=== PATIENT | female | born 1935 | race Caucasian/White ===

== ENCOUNTER 2023-11-23 13:38 | Emergency (ER) | payer MEDICARE, OTHER, SELFPAY ==
[2023-11-23 13:42] VITALS: BMI 20.7
[2023-11-23 13:43] VITALS: BP 155/79
[2023-11-23 13:47] VITALS: BP 155/79
[2023-11-23 14:00] VITALS: BP 125/99
--- NOTE | 2023-11-23 14:27 | ED.GENMED ---
History of Present Illness
General
Chief Complaint: Fall
Source: patient
Exam Limitations: none
Time Seen by Provider: 11/23/23 13:49
Nursing documentation reviewed up to this point in time: agreed with
History of Present Illness
History of Present Illness:
Patient is an 88-year-old female from [facility] presents to the ER for evaluation. She was in her apartment cleaning up from lunch when she reports she lost her balance and fell landing on her side. She reports she has balance issues.
She denies any lightheaded dizziness prior to fall. She denies hitting her head. She is not on blood thinners.She denies headache
She landed on her left hip but she does not believe her hip is sore. She does complain of left foot pain. She also complains of pain around her torso area/lower back and rib area. She denies any shortness of breath. Denies any pain with deep
breath.
she denies any headache, nausea/vomiting.
Past History
Past History
ED Past Medical History: Valvular disease
ED Past Surgical History: Gynecological
Social History
Living: alone
Review of Systems
Review of Systems
Allergies reviewed?: Yes
All Other Systems: ROS reviewed and negative except as documented in HPI and ROS
Constitutional: Reports no symptoms; Denies fever, fatigue or chills
Respiratory: Reports other (right rib pain); Denies trouble breathing
Cardiac: Reports no symptoms
ABD/GI: Reports no symptoms; Denies abdominal pain, nausea or vomiting
: Reports no symptoms
Musculoskeletal: Reports back pain
Skin: Reports no symptoms
Neurological: Reports other (Denies hitting head); Denies dizzy or headache
Phy Exam
General Physical Exam
General Presentation: no apparent distress
General age: appears stated age
General Skin: warm and dry
General Habitus: elderly
General Mental: alert
General Hydration: appears well hydrated
ENT Exam
ENT Exam: EOMI
Cardiovascular Exam
Cardiovascular Exam: regular rate/rhythm, no murmur and normal peripheral pulses
Pulmonary Exam
Pulmonary Exam: lungs clear, no respiratory distress and other (No ecchymosis or abrasions of chest mild tender right anterior rib, no crepitus)
Gastrointestinal Exam
Gastrointestinal Exam: non tender and soft
Neurological Exam
Neurological Exam: alert and oriented x3
Musculoskeletal Exam
Musculoskeletal Exam: other (Mildly sore to left foot however no obvious swelling or ecchymosis abrasions or ecchymosis to right medial foot; no obvious head injury no bony cervical thoracic tenderness mildly tender throughout the lumbar region)
Skin Exam
Skin Exam: normal color and warm/dry
Psychiatric Exam
Psychiatric Exam: normal mood/affect
Course
Orders/Labs/Results
Orders:
Orders
11/23/23 14:26
Foot, Left 3 View [CR Foot - Left Min 3 Views] Urgent
Comment:
Reason For Exam: trauma
Lumbar Spine Complete, 4 View [CR Lumbar Spine Comp Min 4 Vw*] Urgent
Comment:
Reason For Exam: trauma
Ribs, Right 3 View W/PA Chest [CR Ribs-right 3 Vw W/pa Chest*] Urgent
Comment:
Reason For Exam: trauma
11/23/23 14:28
Hip, Right 2-3 Views [CR Hip - RT w/wo Pel 2-3 Vw*] Urgent
Comment:
Reason For Exam: trauma
Include a pelvis x-ray?: Yes
11/23/23 15:52
Acetaminophen [Tylenol] 650 mg PO NOW STA
11/23/23 16:19
Chest/Abd/Pelvis w Contrast CT [CT Chest/abd/pel W Iv Cont] Urgent
Comment:
Reason For Exam: right rib/ruq pain/tenderness s/p trauma
Cardiac Monitoring- Treatment ONCE
0.9% Sodium Chloride 1000 ml [Nss] 1,000 ml IV BOLUS
11/23/23 16:52
Complete Blood Count/With Diff Urgent
11/23/23 17:55
Comprehensive Metabolic Panel Urgent
Abnormal Lab Results
11/23/23 11/23/23
16:52 17:55
WBC 11.1 H 10^3/uL
(4.8-10.8)
Abs Immat Gran (auto) 0.1 H 10^3/uL
(0-0.05)
Absolute Neuts (auto) 9.1 H 10^3/uL
(1.4-6.5)
Absolute Lymphs (auto) 0.9 L 10^3/uL
(1.2-3.4)
Absolute Monos (auto) 0.8 H 10^3/uL
(0.1-0.6)
Neutrophils % 82.4 H %
(42.2-75.2)
Lymphocytes % 8.4 L %
(20.5-51.1)
Sodium 130 L mmol/L
(135-145)
Chloride 94 L mmol/L
(98-107)
BUN 24 H mg/dl
(7-17)
Glucose 104 H mg/dl
(70-99)
AST 62 H U/L
(14-36)
ALT 63 H U/L
(0-35)
Alkaline Phosphatase 141 H U/L
(38-126)
Total Protein 6.2 L g/dl
(6.3-8.2)
11/23/23 16:52
11/23/23 17:55
Vital Signs
Initial and Last Documented VS:
Initial Vital Signs
BP
155/79
11/23/23 13:43
Last Documented Vital Signs
Temp Pulse Resp BP Pulse Ox
98.0 F 80 18 124/81 99
11/23/23 19:36 11/23/23 19:36 11/23/23 19:36 11/23/23 19:36 11/23/23 19:36
MDM/Problems Addressed
Differential Diagnosis Includes:
Not limited to fractures, contusions
MDM/Problems Addressed:
Patient is an 88-year-old female from [facility] who has previous balance issues describing a mechanical fall. She reports she did fall prior to arrival denies hitting her head. She landed on her head. She reports her foot is mildly sore
and she feels sore in the back and torso area. She denies any headache nausea vomiting. She has a normal neurologic Dave. She is in no acute distress no obvious head injury on exam x-rays were done of hip ribs lumbar spine and foot all which are
negative.
On reexam patient complains of some anterior rib pain and pain in the torso. CAT scan was done and does show a mild T11 superior endplate compression fracture however patient is nontender over this area. Family now bedside reports patient did have
a fall in the summer where she fell backward into her bathtub and has had pain since. This is likely the cause of patient's pain though with no tenderness today is likely from previous fall.
Regarding patient's pain she reports she has history of elevated LFTs they are mildly elevated here we will have her hold off of Tylenol take small doses of ibuprofen as needed . She would like to do lidocaine patches [id number] and I will go
through her insurance.
Will refer back to family doctor and orthopedics for continued monitoring discussed may need physical heart before of compression fracture.
She is ambulatory and steady gait and safe for discharge
Chronic conditions affecting care:
gait issues
*Radiology
Radiology exam reviewed: radiology read reviewed
*Pulse Oximetry
Patient hypoxic: no
*Critical Care Note
Total Time (30-74mins, 75-104mins- exclusive of procedures): Not Applicable
ED Attending Note
-
Portions of this chart may have been created with voice recognition software.� Occasional wrong word or��sound alike� substitutions may have occurred due to the inherent limitations of voice recognition software.
Discharge Plan
Departure
Patient Disposition: Home (Routine Discharge)
Date of Disposition: 11/23/23
Time of Disposition: 18:47
Patient with high blood pressure during this ER visit?: Yes
Condition: Fair
Covid-19: Not Applicable
Discharge Problem:
Contusion, Compression fracture
Instructions: Contusion (DC), Vertebral Compression Fracture (DC), BLOOD PRESSURE
Prescriptions:
No Action
multivitamin [Daily Multiple] 1 EACH tablet
1 ea PO DAILY
lorazepam 0.5 MG tablet
0.5 mg PO HS PRN (Reason: insomnia)
metoprolol succinate [Toprol XL] 25 MG tablet extended release 24 hr
25 mg PO DAILY
magnesium 200 MG tablet
200 mg PO DAILY
levofloxacin 500 MG tablet
500 mg PO DAILY Qty: 7 0RF
metronidazole 500 MG tablet
500 mg PO TID Qty: 20 0RF
Referrals:
Jaswant Parmar MD [Active] -
Shea Padilla MD [Family Provider] -
Activity Restrictions/Additional Instructions:
You may take ibuprofen 400 mg every 8 hours with food only for the next 2 to 3 days as needed
Ice the affected areas for the next 24 hours 20 minutes at a time several times a day. Follow-up with your family doctor in the next several for reevaluation as well as orthopedics for further evaluation of symptoms and evaluation for
compression fracture
Also as discussed you may use lidocaine 4% patches which are [id number]. apply to affected area.
In addition your sodium was mildly low you may increase sodium intake and follow-up with family doctor for repeat blood work in the next week
Return if any worsening of symptoms
Interventions
Interventions:
*Risk Screen - Suicide Last Done: 11/23/23 13:51
*General Assessment Last Done: 11/23/23 13:51
*Neglect/Abuse Screening Last Done: 11/23/23 13:51
ED- Fall Risk Assessment Last Done: 11/23/23 17:11
*ED COVID-19 Vaccine History Last Done: 11/23/23 13:51
*Nursing Disposition Last Done: 11/23/23 19:36
ED-Musculoskeletal Assessment Last Done: 11/23/23 17:13
ED- Neurological Assessment Last Done: 11/23/23 17:11
ED-Skin Assessment Last Done: 11/23/23 17:13
Discharge Date and Time
Discharge Date/Time: 11/23/23 19:45
Print Language: AZERI
[2023-11-23] MEDS: TYLENOL 650 MG PO (16:49)
[2023-11-23] MEDS: NSS 1000 IV (17:00)
[2023-11-23 17:09] LABS: % Basophils 0.3 % (0-2); % Eosinophils 0.8 % (0-6); % Immature Granulocytes 0.5 % (0-0.5); % Lymphocytes 8.4 % (20.5-51.1); % Monocytes 7.6 % (1.7-9.3); % Neutrophils 82.4 % (42.2-75.2); Absolute Eosinophils 0.1 10^3/uL (0-0.7); Absolute Immature Granulocytes 0.1 10^3/uL (0-0.05); Absolute Lymphocytes 0.9 10^3/uL (1.2-3.4); Absolute Monocytes 0.8 10^3/uL (0.1-0.6); Absolute Neutrophils 9.1 10^3/uL (1.4-6.5); Hematocrit 41.4 % (37.0-47.0); Hemoglobin 14.6 g/dL (12.0-16.0); Mean Corp Hgb Conc. 35.3 g/dL (33.0-37.0); Mean Corpuscular Volume 87.9 fL (81.0-99.0); Mean Platelet Volume 8.8 fL (7.4-10.4); Nucleated Red Blood Cells % 0 %; Platelet Count 268 10^3/uL (130-400); Red Blood Cell Count 4.71 10^6/uL (4.20-5.40); Red Cell Dist. Width 12.2 % (11.5-14.5); White Blood Cell Count 11.1 10^3/uL (4.8-10.8)
[2023-11-23 18:27] LABS: ALT (SGPT) 63 U/L (0-35); AST (SGOT) 62 U/L (14-36); Alkaline Phosphatase 141 U/L (38-126); Blood Urea Nitrogen 24 mg/dl (7-17); Calcium 9.4 mg/dl (8.4-10.2); Carbon Dioxide 24 mmol/L (22-30); Chloride 94 mmol/L (98-107); Estimated Creatinine Clearance 42 ml/min; Glucose 104 mg/dl (70-99); Potassium 4.5 mmol/L (3.5-5.1); Sodium 130 mmol/L (135-145); Total Bilirubin 0.5 mg/dl (0.2-1.3); Total Protein 6.2 g/dl (6.3-8.2); eGFR > 60.00
[2023-11-23 19:36] VITALS: BP 124/81
== END 2023-11-23 19:45 | disposition home or self-care (01) ==
LOC: EMR 13:38
PROVIDERS: Nurse Practitioner; EMERGENCY PHYSICIAN Emergency Medicine; FAMILY PHYSICIAN Internal Medicine
DX: S22.080A Wedge compression fracture of T11-T12 vertebra, initial encounter for closed fracture (principal); T14.8XXA Other injury of unspecified body region, initial encounter; R07.81 Pleurodynia; M54.50 Low back pain, unspecified; M79.672 Pain in left foot; R10.11 Right upper quadrant pain; W18.39XA Other fall on same level, initial encounter; Y93.89 Activity, other specified; Y92.89 Other specified places as the place of occurrence of the external cause; R03.0 Elevated blood-pressure reading, without diagnosis of hypertension; I38 Endocarditis, valve unspecified; Z91.81 History of falling; Z88.1 Allergy status to other antibiotic agents; Z88.5 Allergy status to narcotic agent; Z88.8 Allergy status to other drugs, medicaments and biological substances
CPT/HCPCS: 99285; 96360; 71101; 71260; 72110; 73502; 73630; 74177; 80053; 85025; Q9967

== ENCOUNTER 2023-12-08 05:29 | Inpatient (IN) | payer MEDICARE, OTHER, SELFPAY ==
[2023-12-08] VITALS (10 sets, daily range): BP systolic 147–179; BP diastolic 81–109; PULSE 106; O2SAT 94; BMI 19.4
--- NOTE | 2023-12-08 02:04 | ED.GENMED ---
History of Present Illness
<MARY Lennon - Last Filed: 12/08/23 02:36>
General
Chief Complaint: Abdominal Symptoms
Time Seen by Provider: 12/08/23 02:03
History of Present Illness
History of Present Illness:
Patient is an 88 year old female with a PMH of diverticulitis in 2018 presenting to the ED with complaints of abdominal pain. The pain started around 830 after she took her nighttime medication. She got bloated and got a burning generalized pain
rated a 6/10. She states the burning sensation went away and now it is just generalized pain. The pain does not radiate anywhere. Patient states she gets bloated usually after eating at night, but has never been symptomatic before. Her last bowel
movement was around noon and she states it was normal. She denies any chest pain palpitations sob nausea vomiting fever.
Patient has a PMH of a hysterectomy and diverticulitis. Patient denies any alcohol or tobacco use.
Past History
<MARY Lennon - Last Filed: 12/08/23 02:36>
Past History
ED Past Medical History: Valvular disease
ED Past Surgical History: Gynecological
Social History
Living: alone
Review of Systems
<MARY Lennon - Last Filed: 12/08/23 02:36>
Review of Systems
Constitutional: Reports no symptoms
Respiratory: Reports no symptoms
Cardiac: Reports no symptoms
ABD/GI: Reports abdominal pain (generalized )
Phy Exam
<MARY Lennon - Last Filed: 12/08/23 02:36>
General Physical Exam
General Presentation: well appearing
General age: appears stated age
General Habitus: elderly
General Mental: alert
Cardiovascular Exam
Cardiovascular Exam: regular rate/rhythm, no edema, no gallop, no JVD and no murmur
Pulmonary Exam
Pulmonary Exam: lungs clear, no respiratory distress, no rales, chest non tender, no crackles, no rhonchi, no stridor, no wheezing and no cough
Gastrointestinal Exam
Gastrointestinal Exam: normal bowel sounds, soft, no organomegaly, no pulsatile mass, no cva tenderness, abnormal bowel sounds, distended (moderately distended abdomen ) and tender
Palpation: left upper quadrant: Mild tenderness, left lower quadrant: Moderate tenderness (more tenderness in lower quadrants than upper quadrants ), right upper quadrant: Mild tenderness and right lower quadrant: Moderate tenderness (more
tenderness in lower quadrants than upper quadrants )
Course
<MARY Lennon - Last Filed: 12/08/23 02:36>
Orders/Labs/Results
Orders:
Orders
12/08/23 02:22
Urinalysis Reflex To Culture Urgent
12/08/23 02:35
0.9% Sodium Chloride 1000 ml [Nss] 1,000 ml IV BOLUS
Morphine Sulfate 2 mg IV NOW STA
Ondansetron Injectable [Zofran] 4 mg IV NOW STA
12/08/23 02:37
CT Abd/pelvis W Iv Cont Urgent
Comment:
Reason For Exam: gen abd pain, progressive x 2 weeks
12/08/23 02:55
Complete Blood Count/With Diff Urgent
Comprehensive Metabolic Panel Urgent
Lactic Acid Urgent
Lipase Urgent
12/08/23 03:16
Pantoprazole [Protonix IV] 40 mg IV NOW STA
Abnormal Lab Results
12/08/23
02:55
Absolute Neuts (auto) 7.8 H 10^3/uL
(1.4-6.5)
Absolute Monos (auto) 0.8 H 10^3/uL
(0.1-0.6)
Neutrophils % 77.7 H %
(42.2-75.2)
Lymphocytes % 11.4 L %
(20.5-51.1)
Sodium 132 L mmol/L
(135-145)
Chloride 93 L mmol/L
(98-107)
BUN 32 H mg/dl
(7-17)
Glucose 116 H mg/dl
(70-99)
Calcium 10.5 H mg/dl
(8.4-10.2)
AST 78 H U/L
(14-36)
ALT 102 H U/L
(0-35)
Alkaline Phosphatase 205 H U/L
(38-126)
12/08/23 02:55
12/08/23 02:55
Vital Signs
Initial and Last Documented VS:
Initial Vital Signs
Temp Pulse Resp BP Pulse Ox
97.8 F 88 20 179/92 98
12/08/23 02:01 12/08/23 02:01 12/08/23 02:01 12/08/23 02:01 12/08/23 02:01
Last Documented Vital Signs
Temp Pulse Resp BP Pulse Ox
97.8 F 88 20 179/92 98
12/08/23 02:01 12/08/23 02:01 12/08/23 02:01 12/08/23 02:01 12/08/23 02:19
<Concetta Gotti, DO - Last Filed: 12/08/23 04:36>
Orders/Labs/Results
Orders:
Orders
12/08/23 02:22
Urinalysis Reflex To Culture Urgent
12/08/23 02:35
0.9% Sodium Chloride 1000 ml [Nss] 1,000 ml IV BOLUS
Morphine Sulfate 2 mg IV NOW STA
Ondansetron Injectable [Zofran] 4 mg IV NOW STA
12/08/23 02:37
CT Abd/pelvis W Iv Cont Urgent
Comment:
Reason For Exam: gen abd pain, progressive x 2 weeks
12/08/23 02:55
Complete Blood Count/With Diff Urgent
Comprehensive Metabolic Panel Urgent
Lactic Acid Urgent
Lipase Urgent
12/08/23 03:16
Pantoprazole [Protonix IV] 40 mg IV NOW STA
Abnormal Lab Results
12/08/23
02:55
Absolute Neuts (auto) 7.8 H 10^3/uL
(1.4-6.5)
Absolute Monos (auto) 0.8 H 10^3/uL
(0.1-0.6)
Neutrophils % 77.7 H %
(42.2-75.2)
Lymphocytes % 11.4 L %
(20.5-51.1)
Sodium 132 L mmol/L
(135-145)
Chloride 93 L mmol/L
(98-107)
BUN 32 H mg/dl
(7-17)
Glucose 116 H mg/dl
(70-99)
Calcium 10.5 H mg/dl
(8.4-10.2)
AST 78 H U/L
(14-36)
ALT 102 H U/L
(0-35)
Alkaline Phosphatase 205 H U/L
(38-126)
12/08/23 02:55
12/08/23 02:55
Vital Signs
Initial and Last Documented VS:
Initial Vital Signs
Temp Pulse Resp BP Pulse Ox
97.8 F 88 20 179/92 98
12/08/23 02:01 12/08/23 02:01 12/08/23 02:01 12/08/23 02:01 12/08/23 02:01
Last Documented Vital Signs
Temp Pulse Resp BP Pulse Ox
97.8 F 88 20 179/92 98
12/08/23 02:01 12/08/23 02:01 12/08/23 02:01 12/08/23 02:01 12/08/23 02:19
<MARY Lennon - Last Filed: 12/08/23 02:36>
MDM/Problems Addressed
Differential Diagnosis Includes:
appendicitis, PUD, diverticulitis, colitis
MDM/Problems Addressed:
administer pain meds, order bloodwork
<MARY Lennon - Last Filed: 12/08/23 02:36>
*Critical Care Note
Total Time (30-74mins, 75-104mins- exclusive of procedures): Not Applicable
<Concetta Gotti DO - Last Filed: 12/08/23 04:36>
*Radiology
Radiology exam reviewed: radiology read reviewed
*Pulse Oximetry
Patient hypoxic: no
ED Attending Note
<MARY Lennon - Last Filed: 12/08/23 02:36>
-
Portions of this chart may have been created with voice recognition software.� Occasional wrong word or��sound alike� substitutions may have occurred due to the inherent limitations of voice recognition software.
<Concetta Gotti DO - Last Filed: 12/08/23 04:36>
ED Attending Note
Patient seen and examined by attending physician: Yes
I performed the substantive portion of visit, reviewed & personally made and approve the management plan that is documented in note by myself or RENATA.: Yes
ED Attending Note:
This is an 88-year-old woman who resides at [facility]. She has history of hypertension, GERD, irritable bowel syndrome, depression. She suffered a mechanical fall November 22 and was evaluated in this ED on that day
with complaints of right-sided abdominal pain, right rib pain, bilateral hip pain, left foot pain. X-rays were all unremarkable. CT chest abdomen pelvis showed likely an acute mild L1 superior endplate compression fracture as well as findings
suggestive of nonspecific enteritis/ileus. She was initially discharged back to her independent living apartment where she states she has had continued upper abdominal pain as well as some mild back and right hip pain and has been taking ibuprofen
200 mg 3 times daily as well as Tylenol 3 times daily. She complains of progressive generalized upper abdominal pain that is worse after meals, worse at bedtime described as a burning sensation. Due to ongoing discomfort/pain she has been
transitioned to intermediate facility on December 04 in anticipation to initiate physical therapy. She states ibuprofen was discontinued today, December 06 and change to Celebrex. She was also started on several other medications.
Tonight around 8:30 PM she states abdominal pain has worsened accompanied with abdominal bloating, progressive since then. She has had brief nausea but no vomiting. She passed a normal bowel movement around 12 noon yesterday. No history of
similar episodes of abdominal pain in the past.
She has prior history of diverticulitis 2018. Current pain feels quite different from that.
She has had no dysuria and urgency and or hematuria. No fever no chills, no chest pain nor cough nor shortness of breath.
Her only previous abdominal surgery is a hysterectomy.
GENERAL: 88-year-old woman appears her stated age, awake and alert, appears mildly uncomfortable related to pain. Easily communicative, alert and oriented x 3.
EYE: pupils equal and reactive. anicteric
NECK: Supple, nontender, no meningismus, no significant adenopathy.
ENT: oral mucosa is moist. No rhinorrhea.
CARDIAC: Regular rate and rhythm. no murmur.
LUNGS: Clear breath sounds bilaterally, no acute respiratory distress, no wheezes/rales/rhonchi
ABDOMEN: Rotund, soft, mildly distended, mild tenderness right lower quadrant with deep palpation only, no r/g, no cvat. Mildly hypoactive bowel sounds.
NEUROLOGICAL: Alert and oriented x3, no focal neuro deficits.
SKIN: Warm and dry, normal color, skin intact. No rash.
MUSCULOSKELETAL: No C/C/E. peripheral pulses are full and equal b/l. No palpable tenderness. Dark purple resolving ecchymotic patch left lateral hip.
PSYCH: Normal and appropriate interaction.
Concern for acute appendicitis, diverticulitis, peptic ulcer disease, perforated viscus, ischemic bowel, small bowel obstruction, enteritis, ileus, exacerbation of irritable bowel syndrome.
Will medicate for pain, initiate IV fluids, will plan for labs and plan for CT abdomen pelvis with IV contrast.
12/08/2023 0434 AM
Patient is much more comfortable after an IV dose of morphine, Zofran and IV fluids.
Labs show unremarkable CBC. Moderate prerenal azotemia with elevated LFTs which have trended up mildly from previous labs November 22.
CAT scan shows high-grade small bowel obstruction with transition point in the pelvis. It is reassuring that lactic acid is normal at 0.7 and overall patient appears much more comfortable.
Will plan for NG tube placement to low intermittent suction. Will continue IV fluids, pain medication and will admit to hospitalist service.
Discharge Plan
Departure
Patient Disposition: Admit
Date of Disposition: 12/08/23
Time of Disposition: 04:29
Admit to: Med/Surg
Admit to doctor: Candelario
Presentation/result/management discussed w/ accepting MD/DO: Hospitalist
Discharge Problem:
acute small bowel obstruction, Elevated LFTs
Prescriptions:
No Action
multivitamin [Daily Vitamin] Tablet
1 tab PO HS
quetiapine 25 mg Tablet
25 mg PO HS
acetaminophen 325 mg Tablet
650 mg PO BID
Patient Comments:
for 14 days, Discontinue on 12/20/23
acetaminophen 325 mg Tablet
650 mg PO Q6H
simethicone [Gas-X Ultra-Strength] 180 mg Capsule
180 mg PO TID PRN (Reason: distension)
meloxicam 15 mg Tablet
15 mg PO DAILY
clonazepam 0.5 mg Tablet
0.75 mg PO HS
clonazepam 0.5 mg Tablet
0.25 mg PO Q4H PRN (Reason: anxiety)
meclizine 12.5 mg Tablet
12.5 mg PO BID PRN (Reason: DIZZINESS)
Patient Comments:
stop 12/20/23
omeprazole 40 mg Capsule,Delayed Release(Dr/Ec)
40 mg PO DAILY
tramadol 50 mg Tablet
50 mg PO Q6H PRN (Reason: pain)
mirtazapine 30 mg Tablet
30 mg PO HS
docusate sodium [Colace] 100 mg Capsule
200 mg PO BID
metoprolol succinate [Toprol XL] 25 mg Tablet Extended Release 24 Hr
25 mg PO .1PM
sorbitol 70 % Solution
30 ml PO .Q48H PRN (Reason: constipation)
cholecalciferol (vitamin D3) [Vitamin D3] 10 mcg (400 unit) Capsule
10 mcg PO HS
magnesium hydroxide [Milk Of Magnesia Concentrated] 2,400 mg/10 mL Suspension
30 ml PO DAILY PRN (Reason: constipation)
cyclosporine 0.05 % Drops
1 drp OPHTHALMIC (EYE) Q12H
Patient Comments:
BOTH EYES
Referrals:
Antonio Angel MD [Family Provider] -
Interventions
Interventions:
*Risk Screen - Suicide Last Done: 12/08/23 02:01
*General Assessment Last Done: 12/08/23 02:01
*Neglect/Abuse Screening Last Done: 12/08/23 02:01
ED- Fall Risk Assessment Last Done: 12/08/23 02:01
*ED COVID-19 Vaccine History Last Done: 12/08/23 02:01
IL-Vshqqx-Stsdxbbazk Assessment Last Done: 12/08/23 02:19
Discharge Date and Time
Print Language: GABONESE
[2023-12-08] MEDS: MORPHINE SULFATE 2 MG IV (02:47)
[2023-12-08] MEDS: NSS 1000 IV ×3 (02:59→22:37)
[2023-12-08] MEDS: ZOFRAN 4 MG IV ×2 (02:59→14:27)
[2023-12-08 03:10] LABS: % Basophils 0.5 % (0-2); % Eosinophils 2.2 % (0-6); % Immature Granulocytes 0.4 % (0-0.5); % Lymphocytes 11.4 % (20.5-51.1); % Monocytes 7.8 % (1.7-9.3); % Neutrophils 77.7 % (42.2-75.2); Absolute Basophils 0.1 10^3/uL (0-0.2); Absolute Eosinophils 0.2 10^3/uL (0-0.7); Absolute Lymphocytes 1.2 10^3/uL (1.2-3.4); Absolute Monocytes 0.8 10^3/uL (0.1-0.6); Absolute Neutrophils 7.8 10^3/uL (1.4-6.5); Hematocrit 40.9 % (37.0-47.0); Hemoglobin 14.3 g/dL (12.0-16.0); Mean Corpuscular Hgb 30.8 pg (27.0-31.0); Mean Corpuscular Volume 88.1 fL (81.0-99.0); Mean Platelet Volume 8.9 fL (7.4-10.4); Nucleated Red Blood Cells % 0 %; Platelet Count 241 10^3/uL (130-400); Red Blood Cell Count 4.64 10^6/uL (4.20-5.40); Red Cell Dist. Width 12.9 % (11.5-14.5); White Blood Cell Count 10.1 10^3/uL (4.8-10.8)
[2023-12-08 03:16] LABS: Lactic Acid 0.7 mmol/L (0.7-2.0)
[2023-12-08 03:19] LABS: ALT (SGPT) 102 U/L (0-35); AST (SGOT) 78 U/L (14-36); Albumin 4.7 g/dl (3.5-5.0); Alkaline Phosphatase 205 U/L (38-126); Blood Urea Nitrogen 32 mg/dl (7-17); Calcium 10.5 mg/dl (8.4-10.2); Carbon Dioxide 28 mmol/L (22-30); Chloride 93 mmol/L (98-107); Glucose 116 mg/dl (70-99); Lipase 236 U/L (23-300); Potassium 4.5 mmol/L (3.5-5.1); Sodium 132 mmol/L (135-145); Total Bilirubin 0.8 mg/dl (0.2-1.3); Total Protein 7.1 g/dl (6.3-8.2); eGFR > 60.00
[2023-12-08] MEDS: PROTONIX IV 40 MG IV (03:46)
--- NOTE | 2023-12-08 05:08 | HPS.HSE ---
Family Physician
-
Family Physician: Antonio Angel
Chief Complaint
-
Abd Pain
History of Present Illness
Patient is an 88y F with PMH significant for hypertension, SVT and anxiety / depression who presents to ED complaining of abdominal pain. Patient states that she suffered a fall on 11/22 and was seen here in the ED at that time. Evaluation
revealed evidence of L1 compression fracture. Patient returned home to her independent living apartment, but has been having some difficulty with ambulation / ADLs. Three days ago she moved into the SNF unit at her facility for formal PT and
additional assistance. Patient states that she has noted some abdominal distention and bloating for about 2 weeks now. She has experienced abdominal discomfort and bloating - mostly after the evening meal. Her symptoms generally improve with time
and lying supine.
She has noted poor appetite. No N/V and no changes in bowel habits appreciated.
This evening after dinner she again developed the pain. With persistent / worsening symptoms she presented to the ED for further evaluation.
No F/C, N/V. No chest pain or dyspnea.
She had two bowel movements on Tuesday. No BM or flatus since pain started around 8 PM this evening.
Patient reports two prior episodes of severe abdominal pain in the Spring of this year. Those symptoms resolved after about 6-8 hours each and she did not seek medical attention at those times.
Medical History
Past Medical History
Past Medical History: Reports Other
Additional Past Medical History:
Hypertension
Achalasia / GERD
Aortic Regurgitation
SVT
Anxiety / Depression / Insomnia
Past Surgical History: Reports Other
Additional Past Surgical History:
LISA / BSO
D&C
POEM Procedure
Breast Biopsy (benign)
Eye Surgery
Social History
Tobacco: Non-smoker
Alcohol: None
Drug: None
Family History
Family History: Not pertinent
Allergies / Home Medications
Allergies reflects when Allergies were last updated in [employer].
Home Medications with original date entered in [employer]
Allergy/Medication List:
Allergies
Allergy/AdvReac Type Severity Reaction Status Date / Time
codeine Allergy Tongue Verified 08/12/17 11:20
Swelling
erythromycin base Allergy Rash Verified 08/12/17 11:20
oxycodone Allergy Tongue Verified 08/12/17 11:20
Swelling
prochlorperazine Allergy Anaphylaxis Verified 08/12/17 11:20
[From Compazine]
Home Medications
acetaminophen 325 mg tablet 650 mg PO BID 12/08/23
acetaminophen 325 mg tablet 650 mg PO Q6H pain or temp > 100 12/08/23
cholecalciferol (vitamin D3) 10 mcg (400 unit) capsule (Vitamin D3) 10 mcg PO HS 12/08/23
clonazepam 0.5 mg tablet 0.25 mg PO Q4H PRN anxiety 12/08/23
clonazepam 0.5 mg tablet 0.75 mg PO HS 12/08/23
cyclosporine 0.05 % eye drops 1 drp ophthalmic (eye) Q12H 12/08/23
docusate sodium 100 mg capsule (Colace) 200 mg PO BID 12/08/23
magnesium hydroxide 2,400 mg/10 mL oral suspension (Milk Of Magnesia Concentrated) 30 ml PO DAILY PRN constipation 12/08/23
meclizine 12.5 mg tablet 12.5 mg PO BID PRN DIZZINESS 12/08/23
meloxicam 15 mg tablet 15 mg PO DAILY 12/08/23
metoprolol succinate 25 mg tablet,extended release 24 hr (Toprol XL) 25 mg PO .1PM 12/08/23
mirtazapine 30 mg tablet 30 mg PO HS 12/08/23
multivitamin 1 tab PO HS 12/08/23
omeprazole 40 mg capsule,delayed release 40 mg PO DAILY 12/08/23
quetiapine 25 mg tablet 25 mg PO HS 12/08/23
simethicone 180 mg capsule (Gas-X Ultra-Strength) 180 mg PO TID PRN distension 12/08/23
sorbitol 70 % solution 30 ml PO .Q48H PRN constipation 12/08/23
tramadol 50 mg tablet 50 mg PO Q6H PRN pain 12/08/23
Review of Systems
-
History Source: Patient
A 12 point ROS was completed and negative except as noted: Yes
Constitutional: Denies Fever or Chills
Respiratory: Denies Cough or Trouble Breathing
Cardiac: Denies Chest Pain or Palpitations
Abdomen/GI: Reports Abdominal Pain and Anorexia; Denies Nausea, Vomiting or Diarrhea
: Denies Dysuria, Frequency or Flank Pain
Musculoskeletal: Reports Other (Back Pain); Denies Joint Pain
Neurological: Denies Dizzy or Headache
Psych: Denies Depression or Anxiety
Physical Exam
Vital Signs
Vital Signs
Temp Pulse Resp BP Pulse Ox
97.8 F 98 22 159/81 98
12/08/23 02:01 12/08/23 04:37 12/08/23 04:37 12/08/23 04:00 12/08/23 04:37
Physical Exam
General: Other (88y F in no acute distress.)
HEENT: Moist mucous membranes and PERRLA
Respiratory: Clear; No Wheezes, Rales or Rhonchi
Cardiac: S1/S2 and Regular Rhythm; No Murmur
GI: Other (Abdomen is softly distended. No focal tenderness or rebound. Pos bowel sounds.)
Musculoskeletal: No Clubbing, No Cyanosis and No Edema
Neuro: AO x 3
Laboratory Results
-
12/08/23 02:55
12/08/23 02:55
Laboratory Results
Lactic Acid 0.7 mmol/L (0.7-2.0) 12/08/23 02:55
Total Bilirubin 0.8 mg/dl (0.2-1.3) 12/08/23 02:55
AST 78 U/L (14-36) H 12/08/23 02:55
ALT 102 U/L (0-35) H 12/08/23 02:55
Alkaline Phosphatase 205 U/L (38-126) H 12/08/23 02:55
Lipase 236 U/L (23-300) 12/08/23 02:55
Impression/Plan
-
A/P: Patient is an 88y F with PMH significant for achalasia, hypertension and anxiety who presents to ED complaining of abdominal pain and bloating.
SBO
- Admit for further evaluation and treatment.
- CT scan shows high grade SBO with transition point in the L pelvis.
- No N/V. Pain improved after medication in the ED.
- Continue supportive care including pain control, antiemetics, NPO, IVFs, etc.
- NG decompression if pain increases or patient develops N/V, etc.
- Surgery evaluation for additional recommendations.
- Follow for clinical improvement.
Benign Hypertension
SVT
- Stable. Continue metoprolol with holding parameters.
GERD / Achalasia
- Stable. s/p POEM procedure about 2 years ago.
- No current / recent issues with swallow dysfunction, pain, etc.
- Continue PPI daily.
Anxiety / Depression / Insomnia
Polypharmacy
- Patient is on multiple nocturnal hypnotics / sedating agents.
- Would change to single agent and titrate dose for effect (mirtazapine for now).
- Continue PRN clonazepam for anxiety.
DVT Prophylaxis: SCDs
Code Status: DNR
[2023-12-08 05:30] LABS: Urine Albumin Negative (Neg - Trace); Urine Bilirubin Negative (Negative); Urine Character Clear (Clear); Urine Color Yellow; Urine Glucose Negative (Negative); Urine Ketone Negative (Negative); Urine Leukocyte Negative (Negative); Urine Nitrite Negative (Negative); Urine Occult Blood Negative (Negative); Urine Urobilinogen Negative (Neg - 1+); Urine pH 6.5 (5.0-9.0)
--- NOTE | 2023-12-08 10:37 | CON.GS ---
Consultation
-
Performing Provider: Becky
Reason for Consultation: SBO
Medical History
-
Chief Complaint: Abdominal pain, nausea vomiting
History of Present Illness:
88-year-old female admitted through emergency department evaluation overnight secondary to the acute onset of nausea vomiting abdominal pain.
Reviewed history with patient, review of medical records and discussions via phone with patient's daughter. Patient states that she was in her usual baseline state of health until November 22 when she had a fall at home prompting ER evaluation and
was found to have a L1 compression fracture. She initially went home but then moved into [facility] at her [facility] due to some ongoing difficulties with living independently. She states that over the past 2 weeks now she
has had intermittent abdominal bloating and distention and mild anorexia. Her symptoms seem to progress throughout the day and are worse by the evening. She feels like she is '9 months '. She has been moving her bowels intermittently and
utilizing stool softeners/laxatives but it generally does not improve her symptoms. Last night she developed more severe pain and nausea vomiting after taking her evening medications prompting transfer to the emergency department for evaluation.
On further discussions with the patient and her daughter it sounds as though she has been managing intermittent symptoms of abdominal bloating and distention for the past year or so expectantly and may have followed up with her gastroenterology team
at [facility] without clear etiology identified.
Past abdominal surgical history notable for LISA/BSO 40+ years ago. More recently she underwent a POEM procedure for achalasia about 2 to 3 years ago. No additional abdominal surgical history.
Past Medical History
Past Medical History: Other (Hypertension, aortic regurgitation, SVT, previous history of achalasia, GERD, anxiety/depression/insomnia)
Past Surgical History: Other (LISA/BSO; D&C, polyp procedure, breast biopsies)
Social History
Tobacco: Non-Smoker
Alcohol: None
Living: Assisted Living
Family History
Family History: Reviewed & Not Pertinent
Allergies / Home Medications
Allergy/AdvReac Type Severity Reaction Status Date / Time
codeine Allergy Tongue Verified 08/12/17 11:20
Swelling
erythromycin base Allergy Rash Verified 08/12/17 11:20
oxycodone Allergy Tongue Verified 08/12/17 11:20
Swelling
prochlorperazine Allergy Anaphylaxis Verified 08/12/17 11:20
[From Compazine]
�Medication �Instructions �Recorded �Confirmed �Type
acetaminophen 325 mg tablet 650 mg PO BID Pain 12/08/23 12/08/23 History
acetaminophen 325 mg tablet 650 mg PO Q6H pain or temp > 100 12/08/23 12/08/23 History
cholecalciferol (vitamin D3) 10 10 mcg PO HS Supplement 12/08/23 12/08/23 History
mcg (400 unit) capsule (Vitamin D3)
clonazepam 0.5 mg tablet 0.25 mg PO Q4H PRN anxiety 12/08/23 12/08/23 History
clonazepam 0.5 mg tablet 0.75 mg PO HS Sleep 12/08/23 12/08/23 History
cyclosporine 0.05 % eye drops 1 drp ophthalmic (eye) Q12H Eye 12/08/23 12/08/23 History
Condition
docusate sodium 100 mg capsule 200 mg PO BID Constipation 12/08/23 12/08/23 History
(Colace)
magnesium hydroxide 2,400 mg/10 mL 30 ml PO DAILY PRN constipation 12/08/23 12/08/23 History
oral suspension (Milk Of Magnesia
Concentrated)
meclizine 12.5 mg tablet 12.5 mg PO BID PRN DIZZINESS 12/08/23 12/08/23 History
meloxicam 15 mg tablet 15 mg PO DAILY Pain 12/08/23 12/08/23 History
metoprolol succinate 25 mg 25 mg PO .1PM Blood Pressure 12/08/23 12/08/23 History
tablet,extended release 24 hr
(Toprol XL)
mirtazapine 30 mg tablet 30 mg PO HS Depression 12/08/23 12/08/23 History
multivitamin 1 tab PO HS Supplement 12/08/23 12/08/23 History
omeprazole 40 mg capsule,delayed 40 mg PO DAILY Gastrointestinal 12/08/23 12/08/23 History
release Issue
quetiapine 25 mg tablet 25 mg PO HS Sleep 12/08/23 12/08/23 History
simethicone 180 mg capsule (Gas-X 180 mg PO TID PRN distension 12/08/23 12/08/23 History
Ultra-Strength)
sorbitol 70 % solution 30 ml PO .Q48H PRN constipation 12/08/23 12/08/23 History
tramadol 50 mg tablet 50 mg PO Q6H PRN pain 12/08/23 12/08/23 History
Review of Systems
-
History Source: Patient and Family
All other systems: Negative unless noted
A 10 point review of systems was completed, and was negative except as per HPI.
Physical Exam
Vital Signs
Temp Pulse Resp BP Pulse Ox
98.0 F 101 17 147/93 95
12/08/23 07:00 12/08/23 07:00 12/08/23 07:00 12/08/23 07:00 12/08/23 07:00
12/07/23 12/08/23 12/09/23
06:59 06:59 06:59
Actual Weight 46.448 kg
Body Mass Index (BMI) 19.4
Lab Results
12/08/23 02:55
12/08/23 02:55
WBC 10.1 10^3/uL (4.8-10.8) 12/08/23 02:55
Hgb 14.3 g/dL (12.0-16.0) 12/08/23 02:55
Hct 40.9 % (37.0-47.0) 12/08/23 02:55
Plt Count 241 10^3/uL (130-400) 12/08/23 02:55
Abs Immat Gran (auto) 0.0 10^3/uL (0-0.05) 12/08/23 02:55
Neutrophils % 77.7 % (42.2-75.2) H 12/08/23 02:55
Physical Exam
General: Well Developed, Well Nourished, No Apparent Distress, Comfortable and Other (Appears younger than her stated age)
HEENT: Normocephalic, Anicteric and Atraumatic
Respiratory: Non Labored Respirations
Cardiac: Regular Rhythm
GI: Soft, Non Tender (No rebound, no rigidity, no guarding), Distended (With tympany but not tensely distended.) and Other (Lower midline laparotomy surgical scar. No detectable hernias.)
Skin: Warm and Dry
Neuro: AO x 3
Psych: Calm
Data Reviewed
-
CT Scan: Image Personally Visualized and interpreted, Report Reviewed by me, Discussed with Patient and Discussed with Family
Assessment / Plan
-
Assessment: 88-year-old female presenting with probable high-grade partial small bowel obstruction.
Reporting some clinical improvement with bowel rest overnight but suspect that there is at least a significant degree of persistence of her small bowel obstruction. Given length of symptoms for the past 2 weeks offered/discussed with patient and
her daughter 2 options including more prompt surgical intervention or further radiographic confirmation of degree of small bowel obstruction with oral contrast imaging prior to considering surgery given patient's advanced age. After our discussions
regarding risks and benefits of both approaches will obtain small bowel follow-through and then have further discussions regarding potential indications for surgical management if persistent high-grade partial small bowel obstruction or near
complete obstruction confirmed.
Plan: N.p.o., IV fluid hydration, bowel rest
Small bowel follow-through series
May require NG tube if recurrent obstructive symptoms or if obstructive symptoms are exacerbated by SB follow-through.
Reviewed at length with patient's daughter via phone call as well.
--- NOTE | 2023-12-08 12:43 | W.PN.HOSP.TC ---
Today's Communication/Plan
-
NPO, IVF, bowel rest
Small bowel follow-through series
Assessment / Plan
Assessment / Plan
Physical Exam
General: Not in acute distress
HEENT: Normocephalic. Moist mucous membranes.
Respiratory: Clear to Auscultation Bilaterally
Cardiac: S1/S2 and Regular Rhythm
GI: Other (Abdomen is softly distended. No focal tenderness or rebound. Pos bowel sounds.)
Musculoskeletal: No Cyanosis and No Edema
Neuro: AO x 3
Assessment/Plan
Patient is an 88y F with PMH significant for achalasia, hypertension and anxiety who presents to ED complaining of abdominal pain and bloating.
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
- CT scan shows high grade SBO with transition point in the L pelvis.
- No N/V. Pain improved after medication in the ED.
- Continue supportive care including pain control, antiemetics, NPO, IVFs, bowel rest
- NG decompression if pain increases or patient develops N/V, etc.
- Surgery evaluation for additional recommendations - may require NG tube if recurrent obstructive symptoms or if obstructive symptoms are exacerbated by SB follow-through.
- Small bowel follow-through series
Benign Hypertension
SVT
- Stable. At times high. Continue to monitor. Continue metoprolol with holding parameters.
GERD / Achalasia
- Stable. s/p POEM procedure about 2 years ago.
- No current / recent issues with swallow dysfunction, pain, etc.
- Continue PPI daily.
Anxiety / Depression / Insomnia
Polypharmacy
- Patient is on multiple nocturnal hypnotics / sedating agents.
- Regimen was changed at the time of admission to single agent and titrate dose for effect (mirtazapine for now).
- Continue PRN clonazepam for anxiety.
DVT Prophylaxis: SCDs
Code Status: DNR
Anticipated Discharge: > 48 hours
Subjective/Interval History
-
Date of Service: December 08, 2023
Patient was seen and examined. She reported her abdominal pain is better and she also reported no gas or stool since she came to the hospital.
Objective Data
-
Labs:
Laboratory Results
12/08/23
02:55
WBC 10.1
Hgb 14.3
Hct 40.9
Plt Count 241
Sodium 132 L
Potassium 4.5
Chloride 93 L
Carbon Dioxide 28
BUN 32 H
Creatinine 0.8
Glucose 116 H
Calcium 10.5 H
Total Bilirubin 0.8
AST 78 H
ALT 102 H
Alkaline Phosphatase 205 H
Vital Signs:
Vital Signs
Temp Pulse Resp BP Pulse Ox
98.0 F 101 17 147/93 95
12/08/23 07:00 12/08/23 07:00 12/08/23 07:00 12/08/23 07:00 12/08/23 07:00
[2023-12-08] MEDS: TOPROL XL PO ×2 (14:11→14:18)
[2023-12-08] MEDS: NSS (PRESERVATIVE FREE) IV (14:11)
[2023-12-08] MEDS: LOPRESSOR 6.25 MG IV ×2 (15:49→19:35)
[2023-12-08] MEDS: ATIVAN 0.25 MG IV (16:22)
--- NOTE | 2023-12-08 16:22 | CM ---
Met with patient and family at bedside; initial assessment completed
Pharmacy verified: [facility] @ [address] [place] [address]
Primary Contact verified: Daughter, Cecilia Smith # [phone]
Patient lives alone in an apartment @ [facility]; elevator access in building
PLOF: before Fall on 11/23/23 patient reported she was independent with ADLs, ambulated with a rollator; had dinner in dining room; occasionally a SENIOR PHARMACY TECHNICIAN provided assistance in AM with bathing
On Tuesday, 12/04, patient transferred to SNF @ [facility]. Presented in ED on 12/07 via ambulance w/ abdominal symptoms
Prior SNF stay in September 2023 @ [facility] after a Fall; no Home Health utilization services
Transportation: family will transport if patient is discharged to home; otherwise to be determined
If SNF is recommended @ disposition, preference is [facility]
Discharge Plan pending hospital course; CM will monitor for needs/services
[2023-12-08] MEDS: NSS (PRESERVATIVE FREE) 0.125 ML IV (16:23)
--- NOTE | 2023-12-08 21:30 | PTCARENOTE ---
Pt vomited moderate amount around NGT. Placement verified via auscultation. Site care provided, changed to tape to stat lock. Denies pain/nausea after episode of emesis. 350 mL bilious drainage noted to be in NGT canister. Pt assisted
w/washing/linens/gown changed. Plan of care ongoing.
[2023-12-08] MEDS: REMERON PO (22:34)
[2023-12-09] VITALS (13 sets, daily range): BP systolic 94–194; BP diastolic 58–87; BMI 19.2
[2023-12-09] MEDS: LOPRESSOR 6.25 MG IV ×3 (00:24→12:33)
--- NOTE | 2023-12-09 00:26 | PTCARENOTE ---
Pt with another episode of emesis despite NGT to LIWS. Vomited approx 500 mL bilious emesis. NGT placement verified, flushes well. Suction regulator changed with immediate increase in suction and drainage. NGT immediately drained 750 mL brown
drainage. Pt verbalizes improvement of symptoms. Assisted to BSC to void. Mouth care provided. Plan of care ongoing.
--- NOTE | 2023-12-09 04:36 | PTCARENOTE ---
Patient sinus tachy 130s-140s. Patient was sleeping and asymptomatic.
[2023-12-09 06:15] LABS: Hematocrit 44.3 % (37.0-47.0); Hemoglobin 15.3 g/dL (12.0-16.0); Mean Corp Hgb Conc. 34.5 g/dL (33.0-37.0); Mean Corpuscular Hgb 31.6 pg (27.0-31.0); Mean Corpuscular Volume 91.5 fL (81.0-99.0); Platelet Count 248 10^3/uL (130-400); Red Blood Cell Count 4.84 10^6/uL (4.20-5.40); Red Cell Dist. Width 13.1 % (11.5-14.5); White Blood Cell Count 10.5 10^3/uL (4.8-10.8)
[2023-12-09 06:36] LABS: Blood Urea Nitrogen 39 mg/dl (7-17); Calcium 9.9 mg/dl (8.4-10.2); Carbon Dioxide 29 mmol/L (22-30); Chloride 90 mmol/L (98-107); Estimated Creatinine Clearance 24 ml/min; Glucose 127 mg/dl (70-99); Potassium 3.6 mmol/L (3.5-5.1); Sodium 139 mmol/L (135-145); eGFR 43.54
[2023-12-09] MEDS: NSS IV ×2 (08:44→16:45)
[2023-12-09] MEDS: NSS (PRESERVATIVE FREE) 10 ML IV (08:45)
[2023-12-09] MEDS: PROTONIX IV 40 MG IV (08:46)
[2023-12-09 09:55] LABS: Magnesium 2.1 mg/dl (1.6-2.3)
[2023-12-09] MEDS: NSS 1000 IV ×2 (13:04→21:54)
--- NOTE | 2023-12-09 13:04 | W.PN.GS2 ---
Today's Communication / Plan
-
`
Assessment / Plan
-
Assessment: 88-year-old female with high-grade or complete small bowel obstruction likely secondary to adhesions in the setting of a remote history of LISA/BSO 40+ years ago.
Lengthy discussions with patient as well as her daughter via phone call together today. Given high NG tube outputs which are bilious, abdominal x-rays which show persistent small bowel obstruction and no progression of oral contrast administered
for yesterday small bowel follow-through series we discussed indications for surgical intervention versus continued attempts at nonoperative management with NG tube decompression. We discussed that if we were to continue with NG tube decompression
a statistically the chances of a bowel obstruction improving to diminish and patient's nutritional status will continue to decline therefore I would lean towards surgical intervention today.
After our discussions the patient and her daughter are in agreement.
Laparoscopic lysis of adhesions, possible open, possible bowel resection was reviewed in detail including the operative technique, potential operative findings and their management, alternative treatment options, benefits and risk such as but not
limited to bleeding, infectious or wound related complications, iatrogenic injury to surrounding viscera, anastomotic related complications and recovery of small bowel resection required. We discussed typical postoperative care and hospitalization
pending operative findings. Any of the patient's or her daughters questions were fully addressed and informed consent was obtained.
Plan: Patient on OR schedule for above listed procedure with myself today
Continue supportive care awaiting OR timing
Subjective Data
-
Date of Service: December 09, 2023
Patient seen and examined in follow-up earlier today.
She feels more comfortable with NG tube in place. Less distention. No abdominal pain. No nausea or vomiting. Tolerating NG tube well.
No flatus nor bowel movement.
Objective Data
-
Intake and Output
12/08/23 12/09/23 12/10/23
06:59 06:59 06:59
Intake Total 1260 / 1260 380 / 380
Output Total 2850 / 2850 450 / 450
Balance -1590 / -1590 -70 / -70
Intake:
Oral fluids 180 / 180
IV fluids (Total) 960 / 960
Amount instilled into GI Tube ( 120 / 120 380 / 380
Total)
[place] Sump 120 / 120 380 / 380
Output:
Emesis 600 / 600
Gastrointestinal tube output ( 2099 450 / 450
Total)
[place] Sump 2099 450 / 450
Urine, Voided 150 / 150
Other:
Number of approximated MODERATE 1
amounts of urine
Number of immeasurable emeses? 2
Vital Signs
Temp Pulse Resp BP Pulse Ox
97.6 F 105 17 113/65 93
12/09/23 11:41 12/09/23 12:33 12/09/23 11:41 12/09/23 12:33 12/09/23 12:36
Lab Results
12/09/23 05:38
12/09/23 05:38
Calcium 9.9 mg/dl (8.4-10.2) 12/09/23 05:38
Magnesium 2.1 mg/dl (1.6-2.3) 12/09/23 05:38
Total Bilirubin 0.8 mg/dl (0.2-1.3) 12/08/23 02:55
AST 78 U/L (14-36) H 12/08/23 02:55
ALT 102 U/L (0-35) H 12/08/23 02:55
Alkaline Phosphatase 205 U/L (38-126) H 12/08/23 02:55
Total Protein 7.1 g/dl (6.3-8.2) 12/08/23 02:55
Albumin 4.7 g/dl (3.5-5.0) 12/08/23 02:55
Physical Exam
-
NAD AAOx3
ABD: Softly protuberant/distended and tympanitic. Nontender on palpation. No hernias. No rebound rigidity or guarding.
--- NOTE | 2023-12-09 14:38 | W.PN.HOSP.TC ---
Today's Communication/Plan
-
Surgery today
Assessment / Plan
Assessment / Plan
Physical Exam
General: Not in acute distress
HEENT: Normocephalic. Moist mucous membranes.
Respiratory: Clear to Auscultation Bilaterally
Cardiac: S1/S2 and Regular Rhythm
GI: Other (Abdomen is softly distended. No focal tenderness or rebound. Pos bowel sounds.)
Musculoskeletal: No Cyanosis and No Edema
Neuro: AO x 3
Assessment/Plan
Patient is an 88y F with PMH significant for achalasia, hypertension and anxiety who presents to ED complaining of abdominal pain and bloating.
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
- CT scan shows high grade SBO with transition point in the L pelvis.
- No N/V. Pain improved after medication in the ED.
- Continue supportive care including pain control, antiemetics, NPO, IVFs, bowel rest
- NG decompression if pain increases or patient develops N/V, etc.
- Surgery evaluation for additional recommendations -- surgery today -- patient is usually active at baseline and ambulates with a rolling walker, and surgery is necessary, without surgery there is high risk of
morbidity/mortality
- Small bowel follow-through series
Benign Hypertension
SVT
- Stable. At times high. Continue to monitor. Continue IV Lopressor for now given patient cannot swallow
GERD / Achalasia
- Stable. s/p POEM procedure about 2 years ago.
- No current / recent issues with swallow dysfunction, pain, etc.
- Continue PPI daily.
Anxiety / Depression / Insomnia
Polypharmacy
- Patient is on multiple nocturnal hypnotics / sedating agents.
- Regimen was changed at the time of admission to single agent and titrate dose for effect (mirtazapine for now).
- Continue PRN clonazepam for anxiety.
DVT Prophylaxis: SCDs -- can be started on Lovenox or Heparin if okay with surgery
Code Status: DNR
Anticipated Discharge: > 48 hours
Subjective/Interval History
-
Date of Service: December 09, 2023
Patient was seen and examined. She reported feeling better after NG tube placement yesterday. She has not had bowel movement or gas.
Objective Data
-
Labs:
Laboratory Results
12/09/23
05:38
WBC 10.5
Hgb 15.3
Hct 44.3
Plt Count 248
Sodium 139
Potassium 3.6
Chloride 90 L
Carbon Dioxide 29
BUN 39 H
Creatinine 1.2 H
Glucose 127 H
Calcium 9.9
Vital Signs:
Vital Signs
Temp Pulse Resp BP Pulse Ox
97.6 F 105 17 113/65 93
12/09/23 11:41 12/09/23 12:33 12/09/23 11:41 12/09/23 12:33 12/09/23 12:36
I&O
12/08/23 12/09/23 12/10/23
06:59 06:59 06:59
Intake Total 1260 / 1260 410 / 410
Output Total 2850 / 2850 800 / 800
Balance -1590 / -1590 -390 / -390
--- NOTE | 2023-12-09 17:05 | W.SUR.PREOP ---
Pre-Operative Surgical Note
-
I have examined this patient prior to the performance of the scheduled procedure.
The patient's condition is unchanged from the time of the current History and
Physical and the patient is able to undergo the scheduled procedure.
[2023-12-09] MEDS: LOPRESSOR IV (18:21)
--- NOTE | 2023-12-09 18:22 | PTCARENOTE ---
Pts daughter, prior to leaving for surgery, took all jewelry and belongings home. 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
--- NOTE | 2023-12-09 20:43 | W.IMMPOSTOP ---
Addendum entered and electronically signed by Ash Pena MD 12/09/23 20:59:
#[id number]
correction to dragon dictation below
Preop diagnosis: Small bowel obstruction
Postop diagnosis: High-grade/complete small bowel obstruction secondary to adhesions
Original Note:
Surgical Immed Post Op Note
-
Primary Surgeon: Becky
Assisting Surgeon: Memo ORTIZ
Pre-op Diagnosis: Small bowel structure
Post-op Diagnosis: High-grade/complete small bowel extraction secondary to adhesions
Procedure Performed: Laparoscopic converted to laparotomy, lysis of adhesions with small bowel resection
Anesthesia Type: GETA +0.25% Marcaine
Specimen / Cultures: Small bowel/none
Estimated Blood Loss: 26 mL
Complications: None immediate
Operative Findings: Dense area of small bowel adhesions in the left pelvis and deep pelvis resulting in internal hernia and high-grade/complete small bowel obstruction. Conversion to laparotomy for adhesiolysis. No enterotomies however small bowel
clearly with abrupt demarcation/transition and dense interloop adhesions over a short segment therefore small bowel resection performed with [id number] anastomosis (SOPHIA 80 Gerry technique)
Plan: IV fluid hydration
NG tube decompression -anticipating probable delayed postoperative GI recovery given length of time of obstruction and degree of small bowel distention
Kingsley postop until postoperative day 2
Analgesics and antiemetics as needed
Repeat labs tomorrow a.m.
If continued high NG tube outputs over the first 24 to 48 hours consider PICC line for TPN
family updated post op in waiting area
[2023-12-09] MEDS: SUBLIMAZE 50 MCG IV ×2 (21:38→22:00)
[2023-12-09] MEDS: TRANDATE 5 MG IV (21:47)
[2023-12-09] MEDS: DILAUDID 0.5 MG IV (22:54)
--- NOTE | 2023-12-09 23:55 | PTCARENOTE ---
Pt received from PACU in bed. AAOx2 (time) and drowsy. Full physical assessment documented (refer to worklist). Nicole Luna NGT to R nare w/dark bilious drainage, placement verified auscultation. Bulky abdominal dressing c/d/i. Kingsley draining
scant amount of clear yellow urine. Knee high SCDs in place. IVF infusing via #22 LFA w/NSS infusing at 120 mL/hr without complication. Bed alarm active for safety, call antonio w/in reach. Plan of care ongoing.
[2023-12-10] VITALS (10 sets, daily range): BP systolic 119–167; BP diastolic 61–90
[2023-12-10] MEDS: LOPRESSOR 6.25 MG IV ×5 (01:03→23:23)
--- NOTE | 2023-12-10 01:30 | PTCARENOTE ---
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 Instructed to bladder scan, not able at this time as pt post op w/bulky abdominal dressing. No new orders obtained at this time.
[2023-12-10] MEDS: OFIRMEV 100 IV ×2 (03:27→15:10)
[2023-12-10] MEDS: ATIVAN 0.25 MG IV ×2 (06:01→21:42)
[2023-12-10] MEDS: NSS (PRESERVATIVE FREE) 0.125 ML IV ×2 (06:02→21:42)
[2023-12-10] MEDS: NSS 1000 IV ×3 (06:34→23:45)
[2023-12-10] MEDS: PROTONIX IV 40 MG IV (08:35)
[2023-12-10] MEDS: NSS (PRESERVATIVE FREE) 10 ML IV (08:35)
[2023-12-10 08:40] LABS: Hematocrit 41.9 % (37.0-47.0); Mean Corp Hgb Conc. 33.4 g/dL (33.0-37.0); Mean Corpuscular Hgb 31.8 pg (27.0-31.0); Mean Corpuscular Volume 95.2 fL (81.0-99.0); Mean Platelet Volume 9.2 fL (7.4-10.4); Platelet Count 233 10^3/uL (130-400); Red Cell Dist. Width 13.7 % (11.5-14.5); White Blood Cell Count 7.4 10^3/uL (4.8-10.8)
--- NOTE | 2023-12-10 08:58 | PTOTSP ---
Reviewed chart and noted pt went to OR yesterday for laparotomy, DELISA under general anesthesia. Will need new orders for PT and OT when stable to begin post-op activity.
[2023-12-10 09:00] LABS: ALT (SGPT) 44 U/L (0-35); AST (SGOT) 35 U/L (14-36); Albumin 3.6 g/dl (3.5-5.0); Alkaline Phosphatase 143 U/L (38-126); Blood Urea Nitrogen 62 mg/dl (7-17); Carbon Dioxide 28 mmol/L (22-30); Chloride 97 mmol/L (98-107); Estimated Creatinine Clearance 14 ml/min; Glucose 110 mg/dl (70-99); Magnesium 2.2 mg/dl (1.6-2.3); Phosphorus 7.2 mg/dl (2.5-4.5); Potassium 3.5 mmol/L (3.5-5.1); Sodium 141 mmol/L (135-145); Total Bilirubin 0.6 mg/dl (0.2-1.3); Total Protein 5.9 g/dl (6.3-8.2); eGFR 23.59
[2023-12-10 09:18] LABS: Band Neutrophils 46 % (0-3); Lymphocytes 8 % (20-51); Monocytes 6 % (2-9); Platelets Checked Yes; Segmented Neutrophils 36 % (42-75)
[2023-12-10 09:19] LABS: Metamyelocytes 4 % (-); Normal RBC Morphology Yes; Total Cells Counted 100
--- NOTE | 2023-12-10 13:43 | W.PN.GS2 ---
Today's Communication / Plan
-
continue ngt
change lovenox to heparin
trend creatinine
Assessment / Plan
-
POD#1 Laparoscopic converted to laparotomy, lysis of adhesions with small bowel resection
- Continue NGT - output 1370ml
- Creatinine 2.0, trend. Change lovenox subq to heparin sub for DVT prophylaxis.
- OOB as tolerated
- Continue ochoa until POD#2
- If NGT continues high output, may need TPN in the next day or two
- OR pathology pending
- Pain control: Tylenol/Dilaudid PRN
Subjective Data
-
Date of Service: December 10, 2023
Patient states she has no pain. She denies nausea. She has no complaints.
Objective Data
-
Intake and Output
12/09/23 12/10/23 12/11/23
06:59 06:59 06:59
Intake Total 1260 / 1260 2092
Output Total 2850 / 2850 1800 / 1900 100 / 100
Balance -1590 / -1590 293 / 193 -100 / -100
Intake:
Oral fluids 180 / 180
IV fluids (Total) 960 / 960 1873 / 1873
normosol 100 / 100
IV piggybacks 100 / 100
Amount instilled into GI Tube ( 120 / 120 120 / 120
Total)
[place] Sump 120 / 120 120 / 120
Output:
Emesis 600 / 600
Gastrointestinal tube output ( 2099
Total)
[place] Sump 2099
Urine, Ochoa 80 / 180 100 / 100
Urine, Voided 150 / 150
Other:
Number of approximated SMALL 1
amounts of urine
Number of approximated MODERATE 1
amounts of urine
Number of immeasurable emeses? 2
Vital Signs
Temp Pulse Resp BP Pulse Ox
97.7 F 91 16 137/77 97
12/10/23 11:37 12/10/23 11:37 12/10/23 11:37 12/10/23 11:37 12/10/23 11:37
Lab Results
12/10/23 07:35
12/10/23 07:35
Calcium 8.0 mg/dl (8.4-10.2) L D 12/10/23 07:35
Phosphorus 7.2 mg/dl (2.5-4.5) H 12/10/23 07:35
Magnesium 2.2 mg/dl (1.6-2.3) 12/10/23 07:35
Total Bilirubin 0.6 mg/dl (0.2-1.3) 12/10/23 07:35
AST 35 U/L (14-36) 12/10/23 07:35
ALT 44 U/L (0-35) H 12/10/23 07:35
Alkaline Phosphatase 143 U/L (38-126) H 12/10/23 07:35
Total Protein 5.9 g/dl (6.3-8.2) L 12/10/23 07:35
Albumin 3.6 g/dl (3.5-5.0) 12/10/23 07:35
Physical Exam
-
AAOX3
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
incision: dressing in place
--- NOTE | 2023-12-10 14:31 | W.PN.HOSP.TC ---
Today's Communication/Plan
-
Continue NG Tube
May need TPN
Lovenox changed to Heparin given SANTIAGO
Consulted nephrology given patient's SANTIAGO and high phosphorus
Assessment / Plan
Assessment / Plan
Physical Exam
General: Not in acute distress
HEENT: Normocephalic. Moist mucous membranes.
Respiratory: Clear to Auscultation Bilaterally
Cardiac: S1/S2 and Regular Rhythm
GI: Nontender. NGT in place with dark-colored drainage.
Musculoskeletal: No Cyanosis and No Edema
Neuro: AO x 3
Assessment/Plan
Patient is an 88y F with PMH significant for achalasia, hypertension and anxiety who presents to ED complaining of abdominal pain and bloating.
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
- CT scan shows high grade SBO with transition point in the L pelvis.
- If NGT continues high output, may need TPN in the next day or two, as per surgery team
- NG decompression if pain increases or patient develops N/V, etc.
- Surgery evaluation appreciated
- OOB as tolerated
SANTIAGO
High Phosphorus
-Calcium level okay for now
-Consulted nephrology, appreciate evaluation and recommendations
Benign Hypertension
SVT
- Stable. At times high. Continue to monitor. Continue IV Lopressor for now given patient cannot swallow
GERD / Achalasia
- Stable. s/p POEM procedure about 2 years ago.
- No current / recent issues with swallow dysfunction, pain, etc.
- Continue PPI daily.
Anxiety / Depression / Insomnia
Polypharmacy
- Patient is on multiple nocturnal hypnotics / sedating agents.
- Regimen was changed at the time of admission to single agent and titrate dose for effect (mirtazapine).
- Continue PRN clonazepam when able to tolerate PO for anxiety.
DVT Prophylaxis: SCDs -- Lovenox switched on 12/10/23 to Heparin given worsening renal function.
Code Status: DNR
Anticipated Discharge: > 48 hours
Subjective/Interval History
-
Date of Service: December 10, 2023
Patient was seen and examined. She denied any new symptoms or complaints.
Objective Data
-
Labs:
Laboratory Results
12/10/23
07:35
WBC 7.4
Hgb 14.0
Hct 41.9
Plt Count 233
Sodium 141
Potassium 3.5
Chloride 97 L
Carbon Dioxide 28
BUN 62 H
Creatinine 2.0 H
Glucose 110 H
Calcium 8.0 L D
Total Bilirubin 0.6
AST 35
ALT 44 H
Alkaline Phosphatase 143 H
Vital Signs:
Vital Signs
Temp Pulse Resp BP Pulse Ox
97.7 F 91 16 137/77 97
12/10/23 11:37 12/10/23 11:37 12/10/23 11:37 12/10/23 11:37 12/10/23 11:37
I&O
12/09/23 12/10/23 12/11/23
06:59 06:59 06:59
Intake Total 1260 / 1260 2092
Output Total 2850 / 2850 1800 / 1900 100 / 100
Balance -1590 / -1590 293 / 193 -100 / -100
[2023-12-10] MEDS: DILAUDID 0.5 MG IV (14:42)
--- NOTE | 2023-12-10 15:00 | W.CON.NEPH ---
Consultation
-
Date/Time Consultation Requested: 12/10/2023 2:30 PM
Date/Time Consultation Performed: 12/10/2023 3:00
Requesting Provider: Dr. Tarango
Performing Provider: Dr. De Los Santos
Reason for Consultation: Acute kidney injury
Medical History
-
Chief Complaint: Acute kidney injury
History of Present Illness:
The Patient is an 88y F with PMH significant for hypertension, SVT ( maintained on metoprolol) and anxiety / depression (on benzodiazepine )who presents to ED complaining of abdominal pain. Patient states that she suffered a fall on 11/22 and was
seen here in the ED at that time. Evaluation revealed evidence of L1 compression fracture. Patient returned home to her independent living apartment, but has been having some difficulty with ambulation / ADLs. Three days ago she moved into the
SNF unit at her facility for formal PT and additional assistance. Patient states that she has noted some abdominal distention and bloating for about 2 weeks now. She has experienced abdominal discomfort and bloating - mostly after the evening meal.
Her symptoms generally improve with time and lying supine.
She has noted poor appetite. No N/V and no changes in bowel habits appreciated. She was admitted to the hospital on December 07 with diagnosis of small bowel obstruction of high-grade type. She was initially kept n.p.o. provided IV fluids with
bowel rest. She eventually underwent laparotomy with lysis of adhesions with small bowel resection on 12/09/23. NG tube was placed and continues to note high output. She now has acute kidney injury with her creatinine bumping up from 0.7-2 and
nephrology was consulted. Her urine output has dropped over the past 12 hours. Of note she received an abdomen CT with IV contrast on 12/08/2023. She has remained hemodynamically stable. It appears patient had been receiving Toradol as well for
pain control
Past Medical History
Hypertension
Anxiety
Aortic regurgitation
History of SVT
GERD
Anxiety and depression
Prior history of total abdominal hysterectomy with bilateral salpingo-oophorectomy D&C breast biopsy
Social History
Tobacco: Non-Smoker
Alcohol: None
Family History
no ckd
Family History: Not Pertinent
Allergies / Home Medications
Allergy/AdvReac Type Severity Reaction Status Date / Time
codeine Allergy Tongue Verified 08/12/17 11:20
Swelling
erythromycin base Allergy Rash Verified 08/12/17 11:20
oxycodone Allergy Tongue Verified 08/12/17 11:20
Swelling
prochlorperazine Allergy Anaphylaxis Verified 08/12/17 11:20
[From Compazine]
�Medication �Instructions �Recorded �Confirmed �Type
acetaminophen 325 mg tablet 650 mg PO BID Pain 12/08/23 12/08/23 History
acetaminophen 325 mg tablet 650 mg PO Q6H pain or temp > 100 12/08/23 12/08/23 History
cholecalciferol (vitamin D3) 10 10 mcg PO HS Supplement 12/08/23 12/08/23 History
mcg (400 unit) capsule (Vitamin D3)
clonazepam 0.5 mg tablet 0.25 mg PO Q4H PRN anxiety 12/08/23 12/08/23 History
clonazepam 0.5 mg tablet 0.75 mg PO HS Sleep 12/08/23 12/08/23 History
cyclosporine 0.05 % eye drops 1 drp ophthalmic (eye) Q12H Eye 12/08/23 12/08/23 History
Condition
docusate sodium 100 mg capsule 200 mg PO BID Constipation 12/08/23 12/08/23 History
(Colace)
magnesium hydroxide 2,400 mg/10 mL 30 ml PO DAILY PRN constipation 12/08/23 12/08/23 History
oral suspension (Milk Of Magnesia
Concentrated)
meclizine 12.5 mg tablet 12.5 mg PO BID PRN DIZZINESS 12/08/23 12/08/23 History
meloxicam 15 mg tablet 15 mg PO DAILY Pain 12/08/23 12/08/23 History
metoprolol succinate 25 mg 25 mg PO .1PM Blood Pressure 12/08/23 12/08/23 History
tablet,extended release 24 hr
(Toprol XL)
mirtazapine 30 mg tablet 30 mg PO HS Depression 12/08/23 12/08/23 History
multivitamin 1 tab PO HS Supplement 12/08/23 12/08/23 History
omeprazole 40 mg capsule,delayed 40 mg PO DAILY Gastrointestinal 12/08/23 12/08/23 History
release Issue
quetiapine 25 mg tablet 25 mg PO HS Sleep 12/08/23 12/08/23 History
simethicone 180 mg capsule (Gas-X 180 mg PO TID PRN distension 12/08/23 12/08/23 History
Ultra-Strength)
sorbitol 70 % solution 30 ml PO .Q48H PRN constipation 12/08/23 12/08/23 History
tramadol 50 mg tablet 50 mg PO Q6H PRN pain 12/08/23 12/08/23 History
Review of Systems
-
Unable to obtain full review of systems at this time due to: Acuity and Other (Lethargic with NG tube)
History Source: Patient
All other systems: Negative unless noted
EENT: Other (NG tube to suction)
Abdomen/GI: Abdominal Pain and Other (Abdominal distention)
: Other (ochoa)
Physical Exam
Vital Signs
Vital Signs
Temp Pulse Resp BP Pulse Ox
97.7 F 91 16 137/77 97
12/10/23 11:37 12/10/23 11:37 12/10/23 11:37 12/10/23 11:37 12/10/23 11:37
Lab Results
12/10/23 07:35
WBC 7.4 10^3/uL (4.8-10.8) 12/10/23 07:35
RBC 4.40 10^6/uL (4.20-5.40) 12/10/23 07:35
Hgb 14.0 g/dL (12.0-16.0) 12/10/23 07:35
Hct 41.9 % (37.0-47.0) 12/10/23 07:35
Plt Count 233 10^3/uL (130-400) 12/10/23 07:35
eGFR 23.59 12/10/23 07:35
Phosphorus 7.2 mg/dl (2.5-4.5) H 12/10/23 07:35
Albumin 3.6 g/dl (3.5-5.0) 12/10/23 07:35
Physical Exam
General: Lethargic cachectic
HEENT: Mucous membranes dry facial Symmetry, Neck Supple, Neck: Trachea Midline, No JVD and No Thyromegaly, no Bruits, NGT
Respiratory: Clear to auscultation bilaterally with normal lung exersion
Cardiac: S1/S2 and Regular Rate/Rhythm
Breast: Deferred by me
Abdomen: Decreased bowel sounds abdomen distended slightly tender to palpation and No Hepatosplenomegaly
Rectal: Deferred by Provider
Genito-urinary: No Costovertebral Tenderness, Ochoa catheter noted
Extremities: No Clubbing, No Cyanosis and No Edema
Skin: No Rash or open lesions
Neuro: Difficult to assess as patient very lethargic but moves all 4 extremities
Hematologic/Lymphatic: No Cervical Lymphadenopathy, No Submandibular Lymphadenopathy and No Supraclavicular Lymphadenopathy
Psych: Lethargic and withdrawn
Vascular: plus 1 pedal and radial pulses
Data Reviewed
-
CT Scan: Report Reviewed by me (CT scan with IV contrast of abdomen and pelvis: Normal kidney without obstructive findings small obstruction)
Labs: Labs Reviewed by me (BMP CBC, UA negative)
Old Records: Reviewed (Previous creatinine of 0.9 reviewed from 08/12/2017)
Assessment/Plan
-
Impression:
SANTIAGO
Status post lysis of adhesions and small bowel resection
History of hypertension
History of anxiety/depression
Plan:
SANTIAGO:
-Likely prerenal in setting of postsurgical third spacing ,(NGT losses) ,CT with IV contrast administration and NSAID IV administration
-Urinalysis on admission was bland
-Maintain Ochoa cath
-Obtain fractional excretion of sodium to confirm prerenal stimulus
- maintain isotonic IV fluids for presumed prerenal stimulus and continued third spacing losses
-Remains hemodynamically stable
HTN:
-labetalol provided for bp management while NPO
[2023-12-10] MEDS: RESTASIS 0.05% OPHTHALMIC EMULSION 1 DROPS OPHTH (15:01)
[2023-12-10] MEDS: HEPARIN 5000 UNITS SC ×2 (15:38→23:24)
[2023-12-10 16:16] LABS: Urine Sodium 19 mmol/L (30-90)
--- NOTE | 2023-12-10 19:27 | PTCARENOTE ---
1600 Spoke with juice standardizer who stated pt Sancho not to be dc'd.
--- NOTE | 2023-12-10 21:40 | PTCARENOTE ---
Bloody drainage present in NG tubing. No complaints of pain. SUSTAINABILITY MANAGER made aware, SUSTAINABILITY MANAGER assessed pt at bedside. No new orders provided. Will continue to monitor.
[2023-12-10] MEDS: FLUSH (NSS) 2 FLUSH IV (21:43)
[2023-12-11] VITALS (10 sets, daily range): BP systolic 134–203; BP diastolic 86–119
[2023-12-11 00:10] LABS: Blood Urea Nitrogen 62 mg/dl (7-17); Calcium 8.3 mg/dl (8.4-10.2); Carbon Dioxide 21 mmol/L (22-30); Chloride 104 mmol/L (98-107); Estimated Creatinine Clearance 19 ml/min; Glucose 94 mg/dl (70-99); Potassium 3.6 mmol/L (3.5-5.1); Sodium 141 mmol/L (135-145); eGFR 33.31
[2023-12-11] MEDS: RESTASIS 0.05% OPHTHALMIC EMULSION 1 DROPS OPHTH ×2 (03:52→14:54)
[2023-12-11] MEDS: NSS (PRESERVATIVE FREE) 0.125 ML IV (03:52)
[2023-12-11] MEDS: ATIVAN 0.25 MG IV ×2 (03:53→20:36)
[2023-12-11] MEDS: LOPRESSOR 6.25 MG IV (06:08)
[2023-12-11] MEDS: NSS (PRESERVATIVE FREE) 10 ML IV (08:20)
[2023-12-11] MEDS: HEPARIN 5000 UNITS SC ×3 (08:20→23:58)
[2023-12-11] MEDS: PROTONIX IV 40 MG IV (08:20)
[2023-12-11 09:48] LABS: % Basophils 0.4 % (0-2); % Eosinophils 0.4 % (0-6); % Immature Granulocytes 0.5 % (0-0.5); % Lymphocytes 7.5 % (20.5-51.1); % Monocytes 7.1 % (1.7-9.3); % Neutrophils 84.1 % (42.2-75.2); Absolute Lymphocytes 0.6 10^3/uL (1.2-3.4); Absolute Monocytes 0.5 10^3/uL (0.1-0.6); Absolute Neutrophils 6.4 10^3/uL (1.4-6.5); Hematocrit 38.3 % (37.0-47.0); Hemoglobin 12.6 g/dL (12.0-16.0); Mean Corp Hgb Conc. 32.9 g/dL (33.0-37.0); Mean Corpuscular Volume 94.1 fL (81.0-99.0); Mean Platelet Volume 9.5 fL (7.4-10.4); Nucleated Red Blood Cells % 0 %; Platelet Count 243 10^3/uL (130-400); Red Blood Cell Count 4.07 10^6/uL (4.20-5.40); Red Cell Dist. Width 13.8 % (11.5-14.5); White Blood Cell Count 7.6 10^3/uL (4.8-10.8)
[2023-12-11 10:18] LABS: ALT (SGPT) 35 U/L (0-35); AST (SGOT) 29 U/L (14-36); Albumin 3.4 g/dl (3.5-5.0); Alkaline Phosphatase 161 U/L (38-126); Blood Urea Nitrogen 54 mg/dl (7-17); Carbon Dioxide 23 mmol/L (22-30); Chloride 108 mmol/L (98-107); Estimated Creatinine Clearance 24 ml/min; Glucose 75 mg/dl (70-99); Magnesium 2.5 mg/dl (1.6-2.3); Phosphorus 3.4 mg/dl (2.5-4.5); Potassium 3.5 mmol/L (3.5-5.1); Sodium 145 mmol/L (135-145); Total Bilirubin 0.6 mg/dl (0.2-1.3); Total Protein 5.7 g/dl (6.3-8.2); eGFR 43.54
--- NOTE | 2023-12-11 11:10 | W.PN.NEPH.PH ---
Today's Communication / Plan
-
Changed IV fluids to half-normal saline given evolving free water deficit
SANTIAGO improved
Assessment/Plan
-
Impression:
SANTIAGO
Status post lysis of adhesions and small bowel resection
History of hypertension
History of anxiety/depression
Plan:
SANTIAGO:
-Likely prerenal in setting of postsurgical third spacing ,(NGT losses) ,CT with IV contrast administration and NSAID IV administration
-Fractional excretion of sodium less than 1% consistent with prerenal STEMI
-Urinalysis on admission was bland
-Maintain Kingsley cath
-Will change IV fluid to half-normal saline as she is now hypernatremic
-Remains hemodynamically stable
-Creatinine improved to 1.2
HTN:
-labetalol provided for bp management while NPO
-
-
Date of Service: December 11, 2023
CC / HPI / ROS
-
Chief Complaint:
Acute kidney injury
History of Present Illness:
Creatinine down to 1.2
Hemodynamically stable
Sodium rising to 145
Review of Systems:
N.p.o.
NG tube to suctioning
Labs
-
Labs:
WBC 7.6 10^3/uL (4.8-10.8) 12/11/23 08:48
RBC 4.07 10^6/uL (4.20-5.40) L 12/11/23 08:48
Hgb 12.6 g/dL (12.0-16.0) 12/11/23 08:48
Hct 38.3 % (37.0-47.0) 12/11/23 08:48
Plt Count 243 10^3/uL (130-400) 12/11/23 08:48
Sodium 145 mmol/L (135-145) 12/11/23 08:48
Potassium 3.5 mmol/L (3.5-5.1) 12/11/23 08:48
Chloride 108 mmol/L (98-107) H 12/11/23 08:48
Carbon Dioxide 23 mmol/L (22-30) 12/11/23 08:48
BUN 54 mg/dl (7-17) H 12/11/23 08:48
Creatinine 1.2 mg/dL (0.6-1.0) H 12/11/23 08:48
eGFR 43.54 12/11/23 08:48
Glucose 75 mg/dl (70-99) 12/11/23 08:48
Calcium 9.0 mg/dl (8.4-10.2) 12/11/23 08:48
Phosphorus 3.4 mg/dl (2.5-4.5) 12/11/23 08:48
Albumin 3.4 g/dl (3.5-5.0) L 12/11/23 08:48
Physical Exam
-
Vital Signs:
Vital Signs
Temp Pulse Resp BP Pulse Ox
98.2 F 100 18 176/99 99
12/11/23 07:00 12/11/23 07:00 12/11/23 07:00 12/11/23 09:51 12/11/23 09:51
Cardiovascular:: Regular rate and rhythm
Respiratory:: Bilateral: CTA
Lung Excursion:: Normal
Abdomen:: Distended
Bowel Sounds:: Decreased
Kingsley Catheter: Yes
--- NOTE | 2023-12-11 12:04 | W.PN.GS2 ---
Today's Communication / Plan
-
continue NGT
Assessment / Plan
-
POD#2 Laparoscopic converted to laparotomy, lysis of adhesions with small bowel resection
- Continue NGT - output 225ml
- Creatinine 2.0, trend. Change lovenox subq to heparin sub for DVT prophylaxis.
- OOB as tolerated
- DC ochoa
- If NGT continues high output, may need TPN in the next day or two
- OR pathology pending
- Pain control: Tylenol/Dilaudid PRN
Subjective Data
-
Date of Service: December 11, 2023
Patient states she has no flatus or bowel movements. She has no pain. She has no complaints.
Objective Data
-
Intake and Output
12/10/23 12/11/23 12/12/23
06:59 06:59 06:59
Intake Total 3 / 3 2970 / 2970
Output Total 1800 / 1900 1325 / 1325
Balance 293 / 193 1645 / 1645
Intake:
IV fluids (Total) 1873 / 1873 2880 / 2880
normosol 100 / 100
IV piggybacks 100 / 100
Amount instilled into GI Tube ( 120 / 120 90 / 90
Total)
[place] Sump 120 / 120 90 / 90
Output:
Gastrointestinal tube output ( 1720 / 1720 225 / 225
Total)
[place] Sump 1720 / 1720 225 / 225
Urine, Ochoa 80 / 180 1100 / 1100
Other:
Number of approximated SMALL 1
amounts of urine
Vital Signs
Temp Pulse Resp BP Pulse Ox
98.2 F 100 18 176/99 99
12/11/23 07:00 12/11/23 07:00 12/11/23 07:00 12/11/23 09:51 12/11/23 09:51
Lab Results
12/11/23 08:48
12/11/23 08:48
Calcium 9.0 mg/dl (8.4-10.2) 12/11/23 08:48
Phosphorus 3.4 mg/dl (2.5-4.5) 12/11/23 08:48
Magnesium 2.5 mg/dl (1.6-2.3) H 12/11/23 08:48
Total Bilirubin 0.6 mg/dl (0.2-1.3) 12/11/23 08:48
AST 29 U/L (14-36) 12/11/23 08:48
ALT 35 U/L (0-35) 12/11/23 08:48
Alkaline Phosphatase 161 U/L (38-126) H 12/11/23 08:48
Total Protein 5.7 g/dl (6.3-8.2) L 12/11/23 08:48
Albumin 3.4 g/dl (3.5-5.0) L 12/11/23 08:48
Physical Exam
-
AAOX3
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
incision: dressing in place
[2023-12-11] MEDS: LOPRESSOR 2.5 MG IV (13:16)
[2023-12-11] MEDS: 0.45%NACL 1000 IV (13:17)
[2023-12-11] MEDS: NSS IV (14:21)
[2023-12-11] MEDS: DILAUDID 0.25 MG IV (14:54)
--- NOTE | 2023-12-11 16:57 | W.PN.HOSP.TC ---
Today's Communication/Plan
-
Labetalol PRN has been ordered for high BP and high HR -- provide this as needed
Continue to monitor on telemetry
Continue NG Tube
TPN to be ordered by surgery possibly by tomorrow
Assessment / Plan
Assessment / Plan
Physical Exam
General: Not in acute distress
HEENT: Normocephalic. Moist mucous membranes.
Respiratory: Clear to Auscultation Bilaterally
Cardiac: S1/S2 and Regular Rhythm. Tachycardia.
GI: Nontender. NGT in place with dark-colored drainage.
Musculoskeletal: No Cyanosis and No Edema
Neuro: AO x 3
Assessment/Plan
Patient is an 88y F with PMH significant for achalasia, hypertension and anxiety who presents to ED complaining of abdominal pain and bloating.
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
- CT scan shows high grade SBO with transition point in the L pelvis.
- Continue NG tube given lack of bowel function or flatus.
- Consideration for PICC/TPN tomorrow.
- Surgery evaluation appreciated
- OOB as tolerated
SANTIAGO
High Phosphorus - RESOLVED
-Calcium level okay
-Consulted nephrology, appreciate evaluation and recommendations
-12/11/23: IV fluids with half-normal saline given evolving free water deficit, as per nephrology
Benign Hypertension
SVT
- Stable. At times high. Continue to monitor. Switched IV Lopressor to PRN IV Labetalol
GERD / Achalasia
- Stable. s/p POEM procedure about 2 years ago.
- No current / recent issues with swallow dysfunction, pain, etc.
- Continue PPI daily.
Anxiety / Depression / Insomnia
Polypharmacy
- Patient is on multiple nocturnal hypnotics / sedating agents.
- Regimen was changed at the time of admission to single agent and titrate dose for effect (mirtazapine).
- Continue PRN clonazepam when able to tolerate PO for anxiety.
DVT Prophylaxis: SCDs -- Lovenox switched on 12/10/23 to Heparin given worsening renal function.
Code Status: DNR
Anticipated Discharge: > 48 hours
Subjective/Interval History
-
Date of Service: December 11, 2023
Patient was seen and examined. She reported no fever, pain or any other symptoms or complaints.
Objective Data
-
Labs:
Laboratory Results
12/11/23
08:48
WBC 7.6
Hgb 12.6
Hct 38.3
Plt Count 243
Sodium 145
Potassium 3.5
Chloride 108 H
Carbon Dioxide 23
BUN 54 H
Creatinine 1.2 H
Glucose 75
Calcium 9.0
Total Bilirubin 0.6
AST 29
ALT 35
Alkaline Phosphatase 161 H
Vital Signs:
Vital Signs
Temp Pulse Resp BP Pulse Ox
97.9 F 114 17 168/99 95
12/11/23 15:00 12/11/23 15:00 12/11/23 15:00 12/11/23 15:00 12/11/23 15:00
I&O
12/10/23 12/11/23 12/12/23
06:59 06:59 06:59
Intake Total 2093 / 2093 2970 / 2970
Output Total 1800 / 1900 1325 / 1325
Balance 293 / 193 1645 / 1645
--- NOTE | 2023-12-11 22:14 | PTCARENOTE ---
pt received ativan @2029 d/t patient c/o feeling anxious, daugter at also requesting mother to receive ativan. at 2144 pt confused, pulled IV out and got oob without assitance. Bed alarm placed on bed and pt inst on not getting oob with
assistance. call alvarez within reach.
[2023-12-12] VITALS (9 sets, daily range): BP systolic 158–195; BP diastolic 77–103
[2023-12-12] MEDS: 0.45%NACL 1000 IV ×2 (00:07→10:25)
[2023-12-12] MEDS: RESTASIS 0.05% OPHTHALMIC EMULSION 1 DROPS OPHTH ×2 (00:28→15:55)
[2023-12-12 06:41] LABS: % Basophils 0.4 % (0-2); % Eosinophils 1.6 % (0-6); % Immature Granulocytes 0.4 % (0-0.5); % Lymphocytes 9.1 % (20.5-51.1); % Monocytes 9.3 % (1.7-9.3); % Neutrophils 79.2 % (42.2-75.2); Absolute Eosinophils 0.1 10^3/uL (0-0.7); Absolute Lymphocytes 0.7 10^3/uL (1.2-3.4); Absolute Monocytes 0.7 10^3/uL (0.1-0.6); Absolute Neutrophils 6.2 10^3/uL (1.4-6.5); Hematocrit 35.5 % (37.0-47.0); Hemoglobin 11.9 g/dL (12.0-16.0); Mean Corp Hgb Conc. 33.5 g/dL (33.0-37.0); Mean Corpuscular Hgb 32.3 pg (27.0-31.0); Mean Corpuscular Volume 96.5 fL (81.0-99.0); Mean Platelet Volume 9.4 fL (7.4-10.4); Nucleated Red Blood Cells % 0 %; Platelet Count 220 10^3/uL (130-400); Red Blood Cell Count 3.68 10^6/uL (4.20-5.40); Red Cell Dist. Width 13.4 % (11.5-14.5); White Blood Cell Count 7.9 10^3/uL (4.8-10.8)
[2023-12-12 07:14] LABS: ALT (SGPT) 29 U/L (0-35); AST (SGOT) 28 U/L (14-36); Albumin 3.1 g/dl (3.5-5.0); Alkaline Phosphatase 145 U/L (38-126); Blood Urea Nitrogen 37 mg/dl (7-17); Calcium 8.7 mg/dl (8.4-10.2); Carbon Dioxide 23 mmol/L (22-30); Chloride 107 mmol/L (98-107); Estimated Creatinine Clearance 31 ml/min; Glucose 86 mg/dl (70-99); Magnesium 2.3 mg/dl (1.6-2.3); Phosphorus 1.8 mg/dl (2.5-4.5); Potassium 3.2 mmol/L (3.5-5.1); Sodium 146 mmol/L (135-145); Total Bilirubin 0.8 mg/dl (0.2-1.3); Total Protein 5.3 g/dl (6.3-8.2); eGFR > 60.00
[2023-12-12] MEDS: NSS (PRESERVATIVE FREE) 10 ML IV (08:01)
[2023-12-12] MEDS: PROTONIX IV 40 MG IV (08:01)
[2023-12-12] MEDS: TRANDATE 10 MG IV ×2 (08:01)
[2023-12-12] MEDS: HEPARIN 5000 UNITS SC ×2 (08:02→15:55)
--- NOTE | 2023-12-12 08:48 | PTCARENOTE ---
Pt with increasing confusion this am, mentation waxes and wanes.Medsitter placed for safety. Daughter rekha at bedside, requesting NS[facility] staff to not give the pt any more ativan. Dr Spencer aware. Care ongoing.
--- NOTE | 2023-12-12 09:01 | PTCARENOTE ---
Pt with elevated BP this am. PRN labetalol given. Recheck 168/[address] Spencer made aware. Care remains ongoing.
--- NOTE | 2023-12-12 09:24 | W.PN.GS2 ---
Addendum entered and electronically signed by Rolando Humphreys MD 12/12/23 11:57:
I saw and examined the patient independently.
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
Comment: This is an 88-year-old female postoperative day 3 from a laparoscopic converted to exploratory laparotomy, lysis of adhesion, small bowel resection for a small bowel obstruction.
Confused overnight, removed NG tube and IVs all of which have been replaced.
Continue n.p.o., IV fluids, NG tube to low intermittent wall suction.
PT OT consulted for mobility.
Add IV Tylenol scheduled.
Okay for heparin drip.
General surgery will continue to follow, plan of care discussed with patient's daughter
Original Note:
Today's Communication / Plan
-
C/w NGT. PT/OT to see. C/w pain control. Monitor for bowel function.
Assessment / Plan
-
88yo Female, POD 3
##Laparoscopic converted to laparotomy, lysis of adhesions with small bowel resection
- NGT output 175ccs
- PT/OT consulted for OOB early mobility
- For pain control, add IV Tylenol scheduled. Holding Toradol now as patient is on heparin. Keep Dilaudid PRN
- OR pathology pending
- continue NGT pending return of bowel function after which we can begin advancing diet
Subjective Data
-
Confused this morning. Received Ativan last night for sleep. Not passing gas or stool as yet.
Objective Data
-
Intake and Output
12/11/23 12/12/23 12/13/23
06:59 06:59 06:59
Intake Total 2970 / 2970 1190 / 1190
Output Total 1325 / 1325 100 / 100
Balance 1645 / 1645 1090 / 1090
Intake:
IV fluids (Total) 2880 / 2880 1100 / 1100
Amount instilled into GI Tube ( 90 / 90 90 / 90
Total)
[place] Sump 90 / 90 90 / 90
Output:
Gastrointestinal tube output ( 225 / 225 100 / 100
Total)
[place] Sump 225 / 225 100 / 100
Urine, [place] 1100 / 1100
Other:
Number of approximated SMALL 1
amounts of urine
Number of approximated MODERATE 1
amounts of urine
Vital Signs
Temp Pulse Resp BP Pulse Ox
97.5 F 78 16 168/86 94
12/12/23 07:57 12/12/23 08:55 12/12/23 07:57 12/12/23 08:55 12/12/23 07:57
Lab Results
12/12/23 04:35
12/12/23 04:35
Calcium 8.7 mg/dl (8.4-10.2) 12/12/23 04:35
Phosphorus 1.8 mg/dl (2.5-4.5) L 12/12/23 04:35
Magnesium 2.3 mg/dl (1.6-2.3) 12/12/23 04:35
Total Bilirubin 0.8 mg/dl (0.2-1.3) 12/12/23 04:35
AST 28 U/L (14-36) 12/12/23 04:35
ALT 29 U/L (0-35) 12/12/23 04:35
Alkaline Phosphatase 145 U/L (38-126) H 12/12/23 04:35
Total Protein 5.3 g/dl (6.3-8.2) L 12/12/23 04:35
Albumin 3.1 g/dl (3.5-5.0) L 12/12/23 04:35
Physical Exam
-
Abdominal Exam: soft nontender, non distended, no rebound or guarding. NG tube in place.
[2023-12-12] MEDS: OFIRMEV 100 IV ×2 (10:17→16:56)
--- NOTE | 2023-12-12 10:50 | CON.CAR ---
Consultation
Consultation Request
Date/Time Consultation Requested: December 11, 2023 5 PM
Date/Time Consultation Performed: December 12, 2023 10 AM
Requesting Provider: Hospitalist
Performing Provider: Edy Obrien
Reason for Consultation: Sinus tachycardia and hypertension
Medical History
-
Chief Complaint: Abdominal pain
History of Present Illness:
88-year-old female with past medical history of hypertension, SVT and anxiety/depression who came to the emergency room because of abdominal pain. She has had on and off abdominal pain for the last 2 months. Additionally, in November she had a
fall with an L1 compression fracture. However, over the last 2 weeks she has had abdominal distention and bloating. This progressed from only happening in the evening to occurring nearly constantly. Because of the significant abdominal pain she
then presented to the emergency room. She was then found to have a high-grade or complete small bowel obstruction with adhesions. She went for laparoscopic surgery however, needed laparotomy with lysis of adhesions and small bowel resection. She
has had residual NG tube.
Patient is currently mildly confused after receiving Ativan yesterday. Her daughter is at bedside and has provided interval history. I discussed with them that it appears that this is likely from Umesh procedure related and her heart rate is now
normalized. Her blood pressure remains elevated, however, in the absence of any significant symptoms we will just treat for significant blood pressure with systolics greater than 180 mmHg. Otherwise, she appears asymptomatic and has no new
cardiovascular symptoms.
Past Medical History
Past Medical History: Other (Hypertension Anxiety Aortic regurgitation History of SVT GERD Anxiety and depression)
Past Surgical History: Other (Prior history of total abdominal hysterectomy with bilateral salpingo-oophorectomy D&C breast biopsy)
Social History
Tobacco: Non-Smoker
Alcohol: None
Living: Retirement
Employment: Retired
Family History
Family History: Reviewed & Not Pertinent
Allergies / Home Medications
Allergy/AdvReac Type Severity Reaction Status Date / Time
codeine Allergy Tongue Verified 08/12/17 11:20
Swelling
erythromycin base Allergy Rash Verified 08/12/17 11:20
oxycodone Allergy Tongue Verified 08/12/17 11:20
Swelling
prochlorperazine Allergy Anaphylaxis Verified 08/12/17 11:20
[From Compazine]
�Medication �Instructions �Recorded �Confirmed �Type
acetaminophen 325 mg tablet 650 mg PO BID Pain 12/08/23 12/08/23 History
acetaminophen 325 mg tablet 650 mg PO Q6H pain or temp > 100 12/08/23 12/08/23 History
cholecalciferol (vitamin D3) 10 10 mcg PO HS Supplement 12/08/23 12/08/23 History
mcg (400 unit) capsule (Vitamin D3)
clonazepam 0.5 mg tablet 0.25 mg PO Q4H PRN anxiety 12/08/23 12/08/23 History
clonazepam 0.5 mg tablet 0.75 mg PO HS Sleep 12/08/23 12/08/23 History
cyclosporine 0.05 % eye drops 1 drp ophthalmic (eye) Q12H Eye 12/08/23 12/08/23 History
Condition
docusate sodium 100 mg capsule 200 mg PO BID Constipation 12/08/23 12/08/23 History
(Colace)
magnesium hydroxide 2,400 mg/10 mL 30 ml PO DAILY PRN constipation 12/08/23 12/08/23 History
oral suspension (Milk Of Magnesia
Concentrated)
meclizine 12.5 mg tablet 12.5 mg PO BID PRN DIZZINESS 12/08/23 12/08/23 History
meloxicam 15 mg tablet 15 mg PO DAILY Pain 12/08/23 12/08/23 History
metoprolol succinate 25 mg 25 mg PO .1PM Blood Pressure 12/08/23 12/08/23 History
tablet,extended release 24 hr
(Toprol XL)
mirtazapine 30 mg tablet 30 mg PO HS Depression 12/08/23 12/08/23 History
multivitamin 1 tab PO HS Supplement 12/08/23 12/08/23 History
omeprazole 40 mg capsule,delayed 40 mg PO DAILY Gastrointestinal 12/08/23 12/08/23 History
release Issue
quetiapine 25 mg tablet 25 mg PO HS Sleep 12/08/23 12/08/23 History
simethicone 180 mg capsule (Gas-X 180 mg PO TID PRN distension 12/08/23 12/08/23 History
Ultra-Strength)
sorbitol 70 % solution 30 ml PO .Q48H PRN constipation 12/08/23 12/08/23 History
tramadol 50 mg tablet 50 mg PO Q6H PRN pain 12/08/23 12/08/23 History
Review of Systems
-
All other systems: Negative unless noted
Physical Exam
Vital Signs
Temp Pulse Resp BP Pulse Ox
97.5 F 78 16 168/86 94
12/12/23 07:57 12/12/23 08:55 12/12/23 07:57 12/12/23 08:55 12/12/23 07:57
Lab Results
12/12/23 04:35
12/12/23 04:35
Physical Exam
General: No Apparent Distress and Comfortable
HEENT: Normocephalic, Anicteric and Other (NG tube in place)
Respiratory: Clear and Non Labored Respirations
Cardiac: S1/S2 and Regular Rhythm
Musculoskeletal: No Clubbing, No Cyanosis and No Edema
Skin: Warm and Dry
Neuro: Awake and Alert
Psych: Calm
Impression / Plan
-
A: 88y F with PMH significant for hypertension, SVT ( maintained on metoprolol) and anxiety / depression (on benzodiazepine )who presents to ED complaining of abdominal pain. SHe was found to have a SBO requiring laparotomy with lysis of
adhesions and bowel resection. Cardiology was consulted for sinus tachycardia and HTN.
Sinus tachycardia and HTN
- she is no longer tachycardic
- Her BP likely elevated in setting of NG tube, recent laparotomy, etc
- Labetalol PRN for SBP > 180
- expect this to slowly resolve
SVT
- resume metoprolol when OK to take PO
Confusion
- likely from anesthesia, hospitalization, and intermittent sleeping
We will sign off please call with questions/concerns.
Data Reviewed
-
EKG: Tracing Personally Visualized and interpreted (sr)
Medical Tests (Nuc Med, Echo etc): Report Reviewed by me
Labs: Labs Reviewed by me
[2023-12-12] MEDS: KCL 270 MEQ IV (10:59)
--- NOTE | 2023-12-12 11:58 | W.PN.HOSP.TC ---
Addendum entered and electronically signed by Sharan Spencer MD 12/12/23 12:02:
Hypokalemia-replete
Original Note:
Today's Communication/Plan
-
Remains n.p.o. with NG tube in place.
Continue with IV fluids and follow electrolytes.
PT OT eval reordered.
Assessment / Plan
Assessment / Plan
Assessment/Plan
Patient is an 88y F with PMH significant for achalasia, hypertension and anxiety who presents to ED complaining of abdominal pain and bloating.
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
- CT scan shows high grade SBO with transition point in the L pelvis.
- Continue NG tube given lack of bowel function or flatus.
- Surgery following
- OOB as tolerated
SANTIAGO- RESOLVED
Nephro following
Benign Hypertension
Switched IV Lopressor to PRN IV Labetalol
GERD / Achalasia
- Stable. s/p POEM procedure about 2 years ago.
- No current / recent issues with swallow dysfunction, pain, etc.
- Continue PPI daily.
Anxiety / Depression / Insomnia
Polypharmacy
- Patient is on multiple nocturnal hypnotics / sedating agents.
- Regimen was changed at the time of admission to single agent and titrate dose for effect (mirtazapine).
- Continue PRN clonazepam when able to tolerate PO for anxiety.
DVT Prophylaxis: SCDs -- Lovenox switched on 12/10/23 to Heparin given worsening renal function.
Code Status: DNR
DW daughter at bedside
Anticipated Discharge: > 48 hours
Subjective/Interval History
-
Date of Service: December 12, 2023
Denies much of abdominal pain. Not passing any flatus. No nausea vomiting. She agrees to keep the current NG tube. She pulled out 2 of them.
Alert and oriented. Follows commands. Denies sore throat.
Objective Data
-
Labs:
Laboratory Results
12/12/23
04:35
WBC 7.9
Hgb 11.9 L
Hct 35.5 L
Plt Count 220
Sodium 146 H
Potassium 3.2 L
Chloride 107
Carbon Dioxide 23
BUN 37 H
Creatinine 0.9
Glucose 86
Calcium 8.7
Total Bilirubin 0.8
AST 28
ALT 29
Alkaline Phosphatase 145 H
Vital Signs:
Vital Signs
Temp Pulse Resp BP Pulse Ox
98.7 F 76 16 165/77 95
12/12/23 11:26 12/12/23 11:26 12/12/23 11:26 12/12/23 11:26 12/12/23 11:26
I&O
12/11/23 12/12/23 12/13/23
06:59 06:59 06:59
Intake Total 2970 / 2970 1190 / 1190
Output Total 1325 / 1325 100 / 100
Balance 1645 / 1645 1090 / 1090
Review of Systems
-
Respiratory: Denies Trouble Breathing
Cardiac: Denies Chest Pain
Neuro: Denies Dizzy
Physical Exam
-
General: No Apparent Distress
HEENT: Moist Mucous Membranes
Respiratory: Clear to Auscultation (anteriorly)
Cardiac: Regular Rhythm and S1/S2
GI: Soft and Nontender; Negative Normal Bowel Sounds
Neuro: AO x 3
Psych: Calm
Data Reviewed
-
Labs: Labs Reviewed by me
--- NOTE | 2023-12-12 14:16 | W.PN.NEPH.PH ---
Today's Communication / Plan
-
decrease IVF rate
replace k and phos
Assessment/Plan
-
Impression:
SANTIAGO
Status post lysis of adhesions and small bowel resection
History of hypertension
History of anxiety/depression
Plan:
SANTIAGO: prerenal, resolved
monitor UOP with ochoa
mild hypernatremia-change to 1.4NS if still persists, cont 1/2 NS, decrease rate to 80
replace k in dextrose as ordered, and replace phos
BP are high cont IV prn labetalol, add amparo metoprolol if no CI
NPO a nd NGT per surg
d/w pt and family at bedside
-
-
Date of Service: December 12, 2023
CC / HPI / ROS
-
Chief Complaint:
Acute kidney injury
History of Present Illness:
Creatinine down to 0.9
BP are high s/p IV BB
k lo 3.2, phos is low at 1.8
Sodium rising to 146
Review of Systems:
N.p.o.
NG tube to suctioning
abd pain from recent surg
Labs
-
Labs:
WBC 7.9 10^3/uL (4.8-10.8) 12/12/23 04:35
RBC 3.68 10^6/uL (4.20-5.40) L 12/12/23 04:35
Hgb 11.9 g/dL (12.0-16.0) L 12/12/23 04:35
Hct 35.5 % (37.0-47.0) L 12/12/23 04:35
Plt Count 220 10^3/uL (130-400) 12/12/23 04:35
Sodium 146 mmol/L (135-145) H 12/12/23 04:35
Potassium 3.2 mmol/L (3.5-5.1) L 12/12/23 04:35
Chloride 107 mmol/L (98-107) 12/12/23 04:35
Carbon Dioxide 23 mmol/L (22-30) 12/12/23 04:35
BUN 37 mg/dl (7-17) H 12/12/23 04:35
Creatinine 0.9 mg/dL (0.6-1.0) 12/12/23 04:35
eGFR > 60.00 12/12/23 04:35
Glucose 86 mg/dl (70-99) 12/12/23 04:35
Calcium 8.7 mg/dl (8.4-10.2) 12/12/23 04:35
Phosphorus 1.8 mg/dl (2.5-4.5) L 12/12/23 04:35
Albumin 3.1 g/dl (3.5-5.0) L 12/12/23 04:35
Physical Exam
-
Vital Signs:
Vital Signs
Temp Pulse Resp BP Pulse Ox
98.7 F 76 16 165/77 95
12/12/23 11:26 12/12/23 11:26 12/12/23 11:26 12/12/23 11:26 12/12/23 11:26
Cardiovascular:: Regular rate and rhythm
Respiratory:: Bilateral: CTA
Lung Excursion:: Normal
Abdomen:: Nontender and Soft
Extremity Edema:: None: Bilateral:
Ochoa Catheter: Yes
[2023-12-12] MEDS: SODIUM PHOSPHATE 254 MEQ IV (15:56)
--- NOTE | 2023-12-12 16:25 | CM ---
Case management following for discharge planning
Chart reviewed
Remains n.p.o. with NG tube
Continue with IV fluids
PT/OT pending
Plan - anticipate SNF at discharge
[2023-12-12] MEDS: ATIVAN 0.25 MG IV (20:33)
[2023-12-13] VITALS (7 sets, daily range): BP systolic 160–193; BP diastolic 84–113; BMI 19.2
[2023-12-13] MEDS: HEPARIN 5000 UNITS SC ×4 (00:19→23:24)
[2023-12-13] MEDS: OFIRMEV 100 IV (02:06)
[2023-12-13] MEDS: RESTASIS 0.05% OPHTHALMIC EMULSION 1 DROPS OPHTH ×2 (04:12→14:20)
[2023-12-13] MEDS: 0.45%NACL 1000 IV (06:01)
[2023-12-13 06:46] LABS: Hemoglobin 11.7 g/dL (12.0-16.0); Mean Corp Hgb Conc. 33.4 g/dL (33.0-37.0); Mean Corpuscular Hgb 30.9 pg (27.0-31.0); Mean Corpuscular Volume 92.3 fL (81.0-99.0); Mean Platelet Volume 9.8 fL (7.4-10.4); Platelet Count 217 10^3/uL (130-400); Red Blood Cell Count 3.79 10^6/uL (4.20-5.40); White Blood Cell Count 8.3 10^3/uL (4.8-10.8)
[2023-12-13 06:59] LABS: Blood Urea Nitrogen 21 mg/dl (7-17); Calcium 8.7 mg/dl (8.4-10.2); Carbon Dioxide 23 mmol/L (22-30); Chloride 99 mmol/L (98-107); Estimated Creatinine Clearance 47 ml/min; Glucose 81 mg/dl (70-99); Phosphorus 1.7 mg/dl (2.5-4.5); Potassium 3.2 mmol/L (3.5-5.1); Sodium 137 mmol/L (135-145); eGFR > 60.00
[2023-12-13] MEDS: PROTONIX IV 40 MG IV (08:46)
[2023-12-13] MEDS: NSS (PRESERVATIVE FREE) 10 ML IV (08:46)
--- NOTE | 2023-12-13 09:13 | W.PN.GS2 ---
Addendum entered and electronically signed by Ash Pena MD 12/13/23 12:58:
Patient seen and examined this a.m. with general surgery resident. Agree with documented progress note.
Patient states that she is feeling well with minimal postoperative pain.
Denies nausea, denies vomiting.
2 bowel movements documented by nursing overnight.
NG tube with diminishing output and generally nonbilious.
AFVSS
ABD: Softly protuberant but not distended. Nontender on palpation
Surgical dressings removed and incision sites clean with skin omar in place. No open wounds, no erythema, no drainage.
A/P: POD #4 status post laparotomy, lysis of adhesions with small bowel resection
Signs of returning GI recovery, doing well with postoperative recovery
Remove NG tube
Start clear liquids and Ensure clear supplement
PT OT and mobilize as able
Original Note:
Today's Communication / Plan
-
Advance to CLD. C/w pain control.
Assessment / Plan
-
88yo Female, POD 4
##Laparoscopic converted to laparotomy, lysis of adhesions with small bowel resection
- NGT output <200ccs in 24 hours
- PT/OT consulted for OOB early mobility, recommending skilled rehab 1-2hrs/d
- For pain control, c/w IV Tylenol scheduled. Holding Toradol now as patient is on heparin. Keep Dilaudid PRN
- OR pathology pending
- NGT removed, OK to transition to CLD
Subjective Data
-
Confusion this AM, similar to yesterday. Overnight she had two nonbloody bowel movements. She has not passed gas. No new nausea/vomiting/abdominal pain.
Objective Data
-
Intake and Output
12/12/23 12/13/23 12/14/23
06:59 06:59 06:59
Intake Total 1190 / 1190 2984 / 2984
Output Total 100 / 100 150 / 150
Balance 1090 / 1090 2834 / 2834
Intake:
IV fluids (Total) 1100 / 1100 1979 / 1979
IV piggybacks 824 / 824
Amount instilled into GI Tube ( 90 / 90 180 / 180
Total)
[place] Sump 90 / 90 180 / 180
Output:
Gastrointestinal tube output ( 100 / 100 150 / 150
Total)
[place] Sump 100 / 100 150 / 150
Other:
Number of approximated SMALL 1
amounts of urine
Number of approximated MODERATE 1 5
amounts of urine
Vital Signs
Temp Pulse Resp BP Pulse Ox
97.9 F 92 18 169/84 95
12/13/23 07:00 12/13/23 07:00 12/13/23 07:00 12/13/23 07:00 12/13/23 07:00
Lab Results
12/13/23 04:34
12/13/23 04:34
Calcium 8.7 mg/dl (8.4-10.2) 12/13/23 04:34
Phosphorus 1.7 mg/dl (2.5-4.5) L 12/13/23 04:34
Magnesium 2.3 mg/dl (1.6-2.3) 12/12/23 04:35
Total Bilirubin 0.8 mg/dl (0.2-1.3) 12/12/23 04:35
AST 28 U/L (14-36) 12/12/23 04:35
ALT 29 U/L (0-35) 12/12/23 04:35
Alkaline Phosphatase 145 U/L (38-126) H 12/12/23 04:35
Total Protein 5.3 g/dl (6.3-8.2) L 12/12/23 04:35
Albumin 3.1 g/dl (3.5-5.0) L 12/12/23 04:35
Physical Exam
-
General: resting comfortably in no acute distress. NG tube placed, draining clear fluid.
Abdominal Exam: Soft, moderately distended, nontender abdomen. Tympanitic to percussion. No rebound or guarding. Laparotomy incision stapled, clean, dry, no discharge.
--- NOTE | 2023-12-13 12:12 | W.PN.HOSP.TC ---
Addendum entered and electronically signed by Sharan Spencer MD 12/13/23 12:19:
Hypokalemia -replete
Original Note:
Today's Communication/Plan
-
CW diet per GI
PT/OT eval and treat
Resume home meds
Assessment / Plan
Assessment / Plan
Assessment/Plan
Patient is an 88y F with PMH significant for achalasia, hypertension and anxiety who presents to ED complaining of abdominal pain and bloating.
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
- CT scan shows high grade SBO with transition point in the L pelvis.
- NG tube out and on clear liquids which she is tolerating.
- Surgery following
- OOB as tolerated
SANTIAGO- RESOLVED
Nephro following
Benign Hypertension
Resume oral BB
GERD / Achalasia
- Stable. s/p POEM procedure about 2 years ago.
- No current / recent issues with swallow dysfunction, pain, etc.
- Continue PPI daily.
Anxiety / Depression / Insomnia
Polypharmacy
- Patient is on multiple nocturnal hypnotics / sedating agents.
- Regimen was changed at the time of admission to single agent and titrate dose for effect (mirtazapine).
- Continue PRN clonazepam .
DVT Prophylaxis: SCDs -- Lovenox switched on 12/10/23 to Heparin given worsening renal function.
Code Status: DNR
Anticipated Discharge: 24 - 48 hours
Subjective/Interval History
-
Date of Service: December 13, 2023
NG tube is out. Complains of some sore throat.
Currently on clear liquids which she says is tolerating without nausea vomiting. She thinks she had 2 small bowel movements today.
Objective Data
-
Labs:
Laboratory Results
12/13/23
04:34
WBC 8.3
Hgb 11.7 L
Hct 35.0 L
Plt Count 217
Sodium 137 D
Potassium 3.2 L
Chloride 99
Carbon Dioxide 23
BUN 21 H
Creatinine 0.6
Glucose 81
Calcium 8.7
Vital Signs:
Vital Signs
Temp Pulse Resp BP Pulse Ox
97.9 F 92 18 169/84 95
12/13/23 07:00 12/13/23 07:00 12/13/23 07:00 12/13/23 07:00 12/13/23 07:00
I&O
12/12/23 12/13/23 12/14/23
06:59 06:59 06:59
Intake Total 1190 / 1190 2984 / 2984
Output Total 100 / 100 150 / 150
Balance 1090 / 1090 2834 / 2834
Review of Systems
-
Constitutional: Denies Fever
Respiratory: Denies Trouble Breathing
Cardiac: Denies Chest Pain
Neuro: Denies Dizzy
Physical Exam
-
General: No Apparent Distress
HEENT: Moist Mucous Membranes
Respiratory: Clear to Auscultation
Cardiac: Regular Rhythm and S1/S2
GI: Soft, Nontender, Nondistended and Normal Bowel Sounds
Neuro: AO x 3
Data Reviewed
-
Labs: Labs Reviewed by me
[2023-12-13] MEDS: TOPROL XL 25 MG PO (13:15)
[2023-12-13] MEDS: KCL 40 MEQ PO (13:15)
--- NOTE | 2023-12-13 14:13 | CM ---
Case management following for discharge planning
PT/OT recs SNF at discharge
Spoke with pts daughter Cecilia - prefer [facility] - Pt from
Spoke with admissions - requested clinicals be faxed to [phone]
Clinicals faxed
exec. creative director - Herlinda - [phone], ext [phone]
Plan - transfer to [facility] SN[facility] when medically stable
[2023-12-13] MEDS: SODIUM PHOSPHATE 255 MEQ IV (14:20)
--- NOTE | 2023-12-13 17:40 | W.PN.NEPH.PH ---
Today's Communication / Plan
-
wean off IVF
replace k and phos
Assessment/Plan
-
Impression:
SANTIAGO
Status post lysis of adhesions and small bowel resection
History of hypertension
History of anxiety/depression
Plan:
SANTIAGO: prerenal, resolved
mild hypernatremia-improved
wean off IVF if po intake is adequate
replace k and phos
BP are high back on po meds also anxiety could be playing a role
d/w pt and family at bedside
-
-
Date of Service: December 13, 2023
CC / HPI / ROS
-
Chief Complaint:
Acute kidney injury
History of Present Illness:
Creatinine down to 0.6
BP are high , anxious too
k lo 3.2, phos is low at 1.7 despite IV replacement on 12/11
Sodium better today at 137
Review of Systems:
tolerating po liquids
no n/v
had BM today
Labs
-
Labs:
WBC 8.3 10^3/uL (4.8-10.8) 12/13/23 04:34
RBC 3.79 10^6/uL (4.20-5.40) L 12/13/23 04:34
Hgb 11.7 g/dL (12.0-16.0) L 12/13/23 04:34
Hct 35.0 % (37.0-47.0) L 12/13/23 04:34
Plt Count 217 10^3/uL (130-400) 12/13/23 04:34
Sodium 137 mmol/L (135-145) D 12/13/23 04:34
Potassium 3.2 mmol/L (3.5-5.1) L 12/13/23 04:34
Chloride 99 mmol/L (98-107) 12/13/23 04:34
Carbon Dioxide 23 mmol/L (22-30) 12/13/23 04:34
BUN 21 mg/dl (7-17) H 12/13/23 04:34
Creatinine 0.6 mg/dL (0.6-1.0) 12/13/23 04:34
eGFR > 60.00 12/13/23 04:34
Glucose 81 mg/dl (70-99) 12/13/23 04:34
Calcium 8.7 mg/dl (8.4-10.2) 12/13/23 04:34
Phosphorus 1.7 mg/dl (2.5-4.5) L 12/13/23 04:34
Albumin 3.1 g/dl (3.5-5.0) L 12/12/23 04:35
Physical Exam
-
Vital Signs:
Vital Signs
Temp Pulse Resp BP Pulse Ox
97.9 F 108 18 160/96 95
12/13/23 15:00 12/13/23 15:00 12/13/23 15:00 12/13/23 16:38 12/13/23 15:00
Cardiovascular:: Regular rate and rhythm
Respiratory:: Bilateral: CTA
Lung Excursion:: Normal
Abdomen:: Nontender and Soft
Bowel Sounds:: Normal
Extremity Edema:: None: Bilateral:
[place] Catheter: No
[2023-12-13] MEDS: KLONOPIN 0.5 MG PO (17:44)
[2023-12-13] MEDS: 0.45%NACL IV (20:38)
[2023-12-13] MEDS: REMERON 30 MG PO (20:44)
[2023-12-13] MEDS: SEROQUEL 25 MG PO (20:44)
[2023-12-14] MEDS: RESTASIS 0.05% OPHTHALMIC EMULSION 1 DROPS OPHTH ×2 (03:06→16:19)
[2023-12-14 06:24] LABS: Blood Urea Nitrogen 13 mg/dl (7-17); Calcium 8.9 mg/dl (8.4-10.2); Carbon Dioxide 23 mmol/L (22-30); Chloride 100 mmol/L (98-107); Estimated Creatinine Clearance 47 ml/min; Glucose 109 mg/dl (70-99); Phosphorus 2.6 mg/dl (2.5-4.5); Potassium 3.4 mmol/L (3.5-5.1); Sodium 139 mmol/L (135-145); eGFR > 60.00
--- NOTE | 2023-12-14 07:24 | W.PN.GS2 ---
Addendum entered and electronically signed by Ash Pena MD 12/14/23 12:56:
routine phone call to patients daughter Kelsey updating care from surgical post op standpoint.
Original Note:
Today's Communication / Plan
-
`
Assessment / Plan
-
Assessment: 88 y/o female POD#5 s/p Ex lap, DELISA, and SBR
AF - tachycardy and hypertension noted
post op delerium/confusion - stable
returning GI function with flatus and BM yesterday
Plan: advance to full liquid diet with supplements
start miralax daily tomorrow
PT/OT/OOB to chair as tolerated
Subjective Data
-
Date of Service: December 14, 2023
pt seen and examined this AM
comfortably resting in hospital bed
pleasantly confused - forgot had surgery for SBO but knew [facility] and [facility]
offers no complaints
denies pain
Objective Data
-
Intake and Output
12/13/23 12/14/23 12/15/23
06:59 06:59 06:59
Intake Total 2984 / 2984 3055 / 3055
Output Total 150 / 150 550 / 550
Balance 2834 / 2834 2505 / 2505
Intake:
Oral fluids 1200 / 1200
IV fluids (Total) 1979 / 1979 1855 / 1855
IV piggybacks 824 / 824
Amount instilled into GI Tube ( 180 / 180
Total)
[place] Sump 180 / 180
Output:
Gastrointestinal tube output ( 150 / 150
Total)
[place] Sump 150 / 150
Urine, Voided 550 / 550
Other:
Number of approximated MODERATE 5
amounts of urine
Number of approximated LARGE 1
amounts of urine
Vital Signs
Temp Pulse Resp BP Pulse Ox
97.5 F 128 20 160/90 95
12/13/23 23:31 12/13/23 23:31 12/13/23 23:31 12/13/23 23:35 12/13/23 23:31
Lab Results
12/13/23 04:34
12/14/23 04:34
Calcium 8.9 mg/dl (8.4-10.2) 12/14/23 04:34
Phosphorus 2.6 mg/dl (2.5-4.5) 12/14/23 04:34
Magnesium 2.3 mg/dl (1.6-2.3) 12/12/23 04:35
Total Bilirubin 0.8 mg/dl (0.2-1.3) 12/12/23 04:35
AST 28 U/L (14-36) 12/12/23 04:35
ALT 29 U/L (0-35) 12/12/23 04:35
Alkaline Phosphatase 145 U/L (38-126) H 12/12/23 04:35
Total Protein 5.3 g/dl (6.3-8.2) L 12/12/23 04:35
Albumin 3.1 g/dl (3.5-5.0) L 12/12/23 04:35
Physical Exam
-
NAD AAO to self and year
ABD: softly protuberant, not distented, nontender
incision with omar, no open wounds, no drainage no erythema
[2023-12-14 07:30] VITALS: BP 154/76
[2023-12-14 09:22] LABS: Glucose - Point of Care 121 mg/dl (70-99)
[2023-12-14] MEDS: HEPARIN 5000 UNITS SC ×2 (09:46→16:20)
[2023-12-14] MEDS: NSS (PRESERVATIVE FREE) 10 ML IV (09:46)
[2023-12-14] MEDS: PROTONIX IV 40 MG IV (09:46)
--- NOTE | 2023-12-14 09:54 | W.PN.HOSP.TC ---
Today's Communication/Plan
-
DC Benzo
Advance diet per surgery
cw PT/OT
Assessment / Plan
Assessment / Plan
Assessment/Plan
Patient is an 88y F with PMH significant for achalasia, hypertension and anxiety who presents to ED complaining of abdominal pain and bloating.
SBO with symptoms for ~2 week duration [employer] status post laparoscopic converted to laparotomy with lysis of adhesions and small-bowel resection on 12/09/23
- CT scan shows high grade SBO with transition point in the L pelvis.
- NG tube out and on clear liquids . Advance diet per surgery
- Surgery following
- OOB as tolerated
Confusional episode this am -suspect medication related
Hx Anxiety / Depression / Insomnia
Polypharmacy
- Patient is on multiple nocturnal hypnotics / sedating agents.
- Her mirtazepine and seroquel was restarted last night along with prn benzo.
- Due to her confusion will hold benzo for now and follow.
SANTIAGO- RESOLVED
Nephro following
Benign Hypertension
Resume oral BB -increase the dose
GERD / Achalasia
- Stable. s/p POEM procedure about 2 years ago.
- No current / recent issues with swallow dysfunction, pain, etc.
- Continue PPI daily.
DVT Prophylaxis: SCDs -- Lovenox switched on 12/10/23 to Heparin given worsening renal function.
Code Status: DNR
Anticipated Discharge: 24 - 48 hours
Subjective/Interval History
-
Date of Service: December 14, 2023
This morning a rapid response was called as patient was noted to be very sleepy and hard to arouse and then when she awoke She was agitated.
Arrived when the rapid response team was still present-patient is awake but not oriented. No agitation evident. Follows commands. No acute distress evident. Able to be redirected.
Patient received Ativan last evening and was started on her home dose of Seroquel and mirtazapine last night for the first time.
Objective Data
-
Labs:
Laboratory Results
12/14/23
04:34
Sodium 139
Potassium 3.4 L
Chloride 100
Carbon Dioxide 23
BUN 13
Creatinine 0.5 L
Glucose 109 H
Calcium 8.9
Vital Signs:
Vital Signs
Temp Pulse Resp BP Pulse Ox
97.5 F 128 20 160/90 95
12/13/23 23:31 12/13/23 23:31 12/13/23 23:31 12/13/23 23:35 12/13/23 23:31
I&O
12/13/23 12/14/23 12/15/23
06:59 06:59 06:59
Intake Total 2984 / 2984 3055 / 3055
Output Total 150 / 150 550 / 550
Balance 2834 / 2834 2505 / 2505
Review of Systems
-
Unable to obtain full review of systems at this time due to: Dementia and Other (Cognitive impairment limiting review of systems)
Respiratory: Denies Trouble Breathing
Cardiac: Denies Chest Pain
Abdomen/GI: Denies Abdominal Pain, Nausea or Vomiting
Neuro: Denies Dizzy or Headache
Physical Exam
-
General: Comfortable
Respiratory: Non Labored Respirations; Negative Accessory Resp Muscle Use
Cardiac: Regular Rhythm and S1/S2
GI: Soft, Nontender, Normal Bowel Sounds and Distended (Slight)
Neuro: Awake and Alert; Negative Oriented, No Motor Deficits or Tremors
Psych: Calm and Confused; Negative Agitated
Data Reviewed
-
Labs: Labs Reviewed by me
--- NOTE | 2023-12-14 10:09 | PTCARENOTE ---
0920: RN and PT into work with patient. Patient in chair not opening eyes or responding to verbal or sternal rub. Vital signs taken. BP 106/74, HR 75, SpO2 97% on RA, RR 16. Blood sugar 121. Rapid response called. Patient slid back to bed. Dr. Spencer
to bedside. Labs drawn. Patient starting to open eyes and respond to verbal stimuli. Care ongoing.
[2023-12-14] MEDS: 0.45%NACL IV (11:41)
--- NOTE | 2023-12-14 12:10 | W.PN.NEPH.PH ---
Today's Communication / Plan
-
Observe
Assessment/Plan
-
Impression:
SANTIAGO
Status post lysis of adhesions and small bowel resection
History of hypertension
History of anxiety/depression
Plan:
SANTIAGO: prerenal, resolved
Patient with unresponsive episode this morning
mild hypernatremia-improved
Diet advancing off IV fluids
replace k this a.m.
BP are high back on po meds also anxiety could be playing a role
-
-
Date of Service: December 14, 2023
CC / HPI / ROS
-
Chief Complaint:
Acute kidney injury
History of Present Illness:
Creatinine down to 0.5
BP are high , anxious too
k lo 3.4 phos is low at 2.6 despite IV replacement on 12/11
Sodium at 139
Review of Systems:
tolerating po liquids
no n/v
Unresponsive episode this morning now eating and sitting up in bed
Labs
-
Labs:
WBC 8.3 10^3/uL (4.8-10.8) 12/13/23 04:34
RBC 3.79 10^6/uL (4.20-5.40) L 12/13/23 04:34
Hgb 11.7 g/dL (12.0-16.0) L 12/13/23 04:34
Hct 35.0 % (37.0-47.0) L 12/13/23 04:34
Plt Count 217 10^3/uL (130-400) 12/13/23 04:34
Sodium 139 mmol/L (135-145) 12/14/23 04:34
Potassium 3.4 mmol/L (3.5-5.1) L 12/14/23 04:34
Chloride 100 mmol/L (98-107) 12/14/23 04:34
Carbon Dioxide 23 mmol/L (22-30) 12/14/23 04:34
BUN 13 mg/dl (7-17) 12/14/23 04:34
Creatinine 0.5 mg/dL (0.6-1.0) L 12/14/23 04:34
eGFR > 60.00 12/14/23 04:34
Glucose 109 mg/dl (70-99) H 12/14/23 04:34
Calcium 8.9 mg/dl (8.4-10.2) 12/14/23 04:34
Phosphorus 2.6 mg/dl (2.5-4.5) 12/14/23 04:34
Albumin 3.1 g/dl (3.5-5.0) L 12/12/23 04:35
Physical Exam
-
Vital Signs:
Vital Signs
Temp Pulse Resp BP Pulse Ox
98.2 F 76 14 154/76 96
12/14/23 07:30 12/14/23 07:30 12/14/23 07:30 12/14/23 07:30 12/14/23 07:30
Cardiovascular:: Regular rate and rhythm
Respiratory:: Bilateral: CTA
Lung Excursion:: Normal
Abdomen:: Nontender and Soft
Bowel Sounds:: Normal
Extremity Edema:: None: Bilateral:
Kingsley Catheter: No
--- NOTE | 2023-12-14 13:37 | PTCARENOTE ---
1300: 1:1 initated due to med sitter and staff unsuccessful at redirecting patient from getting OOB and chair. Bed alarm in place and audible. 1:1 at bedside. Care ongoing at this time.
[2023-12-14] MEDS: KCL 20 MEQ PO (14:13)
[2023-12-14] MEDS: TOPROL XL 50 MG PO (14:13)
--- NOTE | 2023-12-14 14:51 | CM ---
Case management following for discharge planning
Chart reviewed
Advancing diet
Accepted at [facility]
Plan - anticipate transfer to [facility] when medically stable
[2023-12-14] MEDS: REMERON 30 MG PO (21:55)
[2023-12-14] MEDS: SEROQUEL 25 MG PO (21:55)
[2023-12-14 23:18] VITALS: BP 160/83
[2023-12-15] MEDS: HEPARIN 5000 UNITS SC ×4 (00:06→23:29)
[2023-12-15] MEDS: RESTASIS 0.05% OPHTHALMIC EMULSION 1 DROPS OPHTH ×2 (03:53→16:11)
[2023-12-15 07:46] VITALS: BP 170/101
[2023-12-15 07:52] VITALS: BP 168/99
[2023-12-15] MEDS: MIRALAX 17 GRAMS PO (08:19)
[2023-12-15] MEDS: PROTONIX IV 40 MG IV (08:19)
[2023-12-15] MEDS: NSS (PRESERVATIVE FREE) 10 ML IV (08:19)
--- NOTE | 2023-12-15 08:53 | W.PN.GS2 ---
Today's Communication / Plan
-
`
Assessment / Plan
-
Assessment: 88 y/o female POD#5 s/p Ex lap, DELISA, and SBR
AF - tachycardy and hypertension noted
post op delerium/confusion - stable
returning GI function with flatus and BM yesterday 12/12
Plan: advance to low residue with supplements
miralax daily and pt request MOM at night if no BM
PT/OT/OOB to chair as tolerated
Subjective Data
-
Date of Service: December 15, 2023
pt seen and examined
intervals of some more lucidity
denies abd pain
no nausea
not eating much but requesting to try an omlet
feels like needs to have BM
Objective Data
-
Intake and Output
12/14/23 12/15/23 12/16/23
06:59 06:59 06:59
Intake Total 3055 / 3055 960 / 960
Output Total 550 / 550 2 / 2 300 / 300
Balance 2505 / 2505 958 / 958 -300 / -300
Intake:
Oral fluids 1200 / 1200 960 / 960
IV fluids (Total) 1855 / 1855
Output:
Urine, Voided 550 / 550 2 / 2 300 / 300
Other:
Number of approximated SMALL 1
amounts of urine
Number of approximated LARGE 1
amounts of urine
How many times incontinent 1
SATURATED amount urine
Vital Signs
Temp Pulse Resp BP Pulse Ox
97.3 F 107 16 168/99 97
12/15/23 07:46 12/15/23 07:46 12/15/23 07:46 12/15/23 07:52 12/15/23 07:46
Lab Results
12/13/23 04:34
Calcium Cancelled 12/15/23 04:25
Phosphorus Cancelled 12/15/23 04:25
Magnesium 2.3 mg/dl (1.6-2.3) 12/12/23 04:35
Total Bilirubin 0.8 mg/dl (0.2-1.3) 12/12/23 04:35
AST 28 U/L (14-36) 12/12/23 04:35
ALT 29 U/L (0-35) 12/12/23 04:35
Alkaline Phosphatase 145 U/L (38-126) H 12/12/23 04:35
Total Protein 5.3 g/dl (6.3-8.2) L 12/12/23 04:35
Albumin 3.1 g/dl (3.5-5.0) L 12/12/23 04:35
Physical Exam
-
NAD AAO self
ABD: softly protuberant, NTTP
incision with omar, no erythema other than slight staple irritation, no drainage, no open wounds
[2023-12-15 09:24] LABS: Blood Urea Nitrogen 18 mg/dl (7-17); Calcium 9.3 mg/dl (8.4-10.2); Carbon Dioxide 28 mmol/L (22-30); Chloride 100 mmol/L (98-107); Estimated Creatinine Clearance 40 ml/min; Glucose 104 mg/dl (70-99); Phosphorus 2.5 mg/dl (2.5-4.5); Potassium 3.4 mmol/L (3.5-5.1); Sodium 139 mmol/L (135-145); eGFR > 60.00
--- NOTE | 2023-12-15 10:39 | W.PN.HOSP.TC ---
Addendum entered and electronically signed by Sharan Spencer MD 12/15/23 10:59:
Hypokalemia -replete
Original Note:
Today's Communication/Plan
-
LR diet
DC 1:1 and Mirtazepine
CW PT tx
DC planning
Assessment / Plan
Assessment / Plan
Assessment/Plan
Patient is an 88y F with PMH significant for achalasia, hypertension and anxiety who presents to ED complaining of abdominal pain and bloating.
SBO with symptoms for ~2 week duration [employer] status post laparoscopic converted to laparotomy with lysis of adhesions and small-bowel resection on 12/09/23
- CT scan shows high grade SBO with transition point in the L pelvis.
- Advanced diet by surgery to LR diet today.
- Surgery following
- OOB as tolerated
- PT/OT eval and treat
Confusional episode -suspect medication related - no agitation ; now pleasantly confused
Hx Anxiety / Depression / Insomnia
Polypharmacy
- Patient is on multiple nocturnal hypnotics / sedating agents.
- Her mirtazepine and seroquel was restarted along with prn benzo. Hold Mirtazepine due to sedation.
SANTIAGO- RESOLVED
Nephro following
Benign Hypertension
Resumed oral BB -increased the dose. Follow for now.
GERD / Achalasia
- Stable. s/p POEM procedure about 2 years ago.
- No current / recent issues with swallow dysfunction, pain, etc.
- Continue PPI daily.
DVT Prophylaxis: SCDs -- Lovenox switched on 12/10/23 to Heparin given worsening renal function.
Code Status: DNR
DW Daughter at bedside.
Anticipated Discharge: Within 24 hours
Subjective/Interval History
-
Date of Service: December 15, 2023
patient is pleasantly confused. She is redirectable. No agitations.
Objective Data
-
Labs:
Laboratory Results
12/15/23 12/15/23
04:25 08:34
Sodium Cancelled 139
Potassium Cancelled 3.4 L
Chloride Cancelled 100
Carbon Dioxide Cancelled 28
BUN Cancelled 18 H
Creatinine Cancelled 0.7
Glucose Cancelled 104 H
Calcium Cancelled 9.3
Vital Signs:
Vital Signs
Temp Pulse Resp BP Pulse Ox
97.3 F 107 16 168/99 97
12/15/23 07:46 12/15/23 07:46 12/15/23 07:46 12/15/23 07:52 12/15/23 09:16
I&O
12/14/23 12/15/23 12/16/23
06:59 06:59 06:59
Intake Total 3055 / 3055 960 / 960
Output Total 550 / 550 2 / 2 450 / 450
Balance 2505 / 2505 958 / 958 -450 / -450
Review of Systems
-
Unable to obtain full review of systems at this time due to: Other (Cognitive impairment)
Respiratory: Denies Trouble Breathing
Cardiac: Denies Chest Pain
Abdomen/GI: Denies Abdominal Pain, Nausea or Vomiting
Physical Exam
-
General: Comfortable
Respiratory: Non Labored Respirations; Negative Accessory Resp Muscle Use
Cardiac: Regular Rhythm and S1/S2
GI: Soft, Nontender and Normal Bowel Sounds
Neuro: Awake, Alert and Oriented (Self only)
Psych: Calm and Confused; Negative Agitated
Data Reviewed
-
Labs: Labs Reviewed by me
--- NOTE | 2023-12-15 10:53 | PTCARENOTE ---
Dr. Spencer D/C 1:1. 1:1 removed at this time. Pt remains on med sitter and bed alarm. Care ongoing.
--- NOTE | 2023-12-15 11:43 | W.PN.NEPH.PH ---
Today's Communication / Plan
-
observe
Assessment/Plan
-
Impression:
SANTIAGO
Status post lysis of adhesions and small bowel resection
History of hypertension
History of anxiety/depression
Plan:
SANTIAGO: prerenal, resolved creatinine at 0.7
Diet advanced to low residue
replace k this a.m. for hypokalemia
BP are high back on po meds also anxiety could be playing a role, metoprolol dosage was doubled by primary team this morning for ongoing tachycardia and hypertension
-
-
Date of Service: December 15, 2023
CC / HPI / ROS
-
Chief Complaint:
Acute kidney injury
History of Present Illness:
Creatinine down to 0.7
BP are high , anxious too
k lo 3.4 phos at 2.5
Sodium at 139
Review of Systems:
tolerating po liquids
no n/v
Labs
-
Labs:
WBC 8.3 10^3/uL (4.8-10.8) 12/13/23 04:34
RBC 3.79 10^6/uL (4.20-5.40) L 12/13/23 04:34
Hgb 11.7 g/dL (12.0-16.0) L 12/13/23 04:34
Hct 35.0 % (37.0-47.0) L 12/13/23 04:34
Plt Count 217 10^3/uL (130-400) 12/13/23 04:34
Sodium 139 mmol/L (135-145) 12/15/23 08:34
Potassium 3.4 mmol/L (3.5-5.1) L 12/15/23 08:34
Chloride 100 mmol/L (98-107) 12/15/23 08:34
Carbon Dioxide 28 mmol/L (22-30) 12/15/23 08:34
BUN 18 mg/dl (7-17) H 12/15/23 08:34
Creatinine 0.7 mg/dL (0.6-1.0) 12/15/23 08:34
eGFR > 60.00 12/15/23 08:34
Glucose 104 mg/dl (70-99) H 12/15/23 08:34
Calcium 9.3 mg/dl (8.4-10.2) 12/15/23 08:34
Phosphorus 2.5 mg/dl (2.5-4.5) 12/15/23 08:34
Albumin 3.1 g/dl (3.5-5.0) L 12/12/23 04:35
Physical Exam
-
Vital Signs:
Vital Signs
Temp Pulse Resp BP Pulse Ox
97.3 F 107 16 168/99 97
12/15/23 07:46 12/15/23 07:46 12/15/23 07:46 12/15/23 07:52 12/15/23 09:16
Cardiovascular:: Regular rate and rhythm (tachy)
Respiratory:: Bilateral: Coarse
Lung Excursion:: Normal
Abdomen:: Nontender
Bowel Sounds:: Decreased
Extremity Edema:: None: Bilateral:
Kingsley Catheter: No
[2023-12-15] MEDS: KCL 40 MEQ PO (12:05)
[2023-12-15] MEDS: TRANDATE 10 MG IV (13:25)
[2023-12-15] MEDS: TOPROL XL 50 MG PO (13:25)
[2023-12-15 15:00] VITALS: BP 161/91
--- NOTE | 2023-12-15 15:25 | CM ---
met with patient ,who is pleasantly confused, her daughter and son at bedside.patient is sp exp lap/marie/sbr pod#5,tolerating a regular diet,bp high and bp meds increased.Plan: snf at [facility] when stable for dc.daughter signed imm letter.
[2023-12-15] MEDS: SEROQUEL 25 MG PO (20:49)
[2023-12-15] MEDS: MILK OF MAGNESIA 30 ML PO (20:49)
[2023-12-15] MEDS: TYLENOL 650 MG PO (21:52)
[2023-12-15] MEDS: KLONOPIN 0.5 MG PO (21:53)
[2023-12-15 23:00] VITALS: BP 156/80
[2023-12-16] MEDS: RESTASIS 0.05% OPHTHALMIC EMULSION 1 DROPS OPHTH ×2 (04:09→15:03)
[2023-12-16 06:43] LABS: Blood Urea Nitrogen 23 mg/dl (7-17); Calcium 9.1 mg/dl (8.4-10.2); Carbon Dioxide 31 mmol/L (22-30); Chloride 99 mmol/L (98-107); Estimated Creatinine Clearance 40 ml/min; Glucose 93 mg/dl (70-99); Magnesium 2.2 mg/dl (1.6-2.3); Phosphorus 2.5 mg/dl (2.5-4.5); Potassium 4.2 mmol/L (3.5-5.1); Sodium 139 mmol/L (135-145); eGFR > 60.00
[2023-12-16 07:05] VITALS: BP 175/95
--- NOTE | 2023-12-16 07:31 | W.PN.GS2 ---
Addendum entered and electronically signed by Rolando Humphreys MD 12/16/23 08:37:
I saw and examined the patient independently.
The resident 's note was reviewed and I agree with the note, assessment and plan except where noted below.
Comment: 88-year-old female postoperative day 6 from an exploratory laparotomy, lysis of adhesions, SBR for recurrent small bowel obstruction. Postop course noted by some delirium and expected ileus now with return of bowel function
Low residue diet.
Continue bowel regimen and MiraLAX daily and as needed milk of magnesia.
PT OT
Dispo per primary
Original Note:
Today's Communication / Plan
-
c/w diet advancement observe for PO tolerance
Assessment / Plan
-
Assessment: 88 y/o female POD#6 s/p Ex lap, DELISA, and SBR
Plan:
- C/w low residue with supplements.
- Had bowel movement yesterday with milk of Magnesia. C/w scheduled Miralax
- PT/OT/OOB to chair as tolerated
Subjective Data
-
Patient had liquid bowel movement overnight with Milk of Magnesia. Feeling hungry this morning. No abdominal pain or nausea. POD Delirium/confusion is stable. AVSS.
Objective Data
-
Intake and Output
12/15/23 12/16/23 12/17/23
06:59 06:59 06:59
Intake Total 960 / 960 900 / 900
Output Total 2 / 2 450 / 450
Balance 958 / 958 450 / 450
Intake:
Oral fluids 960 / 960 900 / 900
Output:
Urine, Voided / 2 450 / 450
Other:
Number of approximated SMALL 1
amounts of urine
How many times incontinent 1
SMALL amount urine
How many times incontinent 1
SATURATED amount urine
Number of unmeasured liquid
stools
Rectum 2
Vital Signs
Temp Pulse Resp BP Pulse Ox
97.9 F 93 16 156/80 97
12/15/23 23:00 12/15/23 23:00 12/15/23 23:00 12/15/23 23:00 12/16/23 02:39
Lab Results
12/13/23 04:34
12/16/23 04:40
Calcium 9.1 mg/dl (8.4-10.2) 12/16/23 04:40
Phosphorus 2.5 mg/dl (2.5-4.5) 12/16/23 04:40
Magnesium 2.2 mg/dl (1.6-2.3) 12/16/23 04:40
Total Bilirubin 0.8 mg/dl (0.2-1.3) 12/12/23 04:35
AST 28 U/L (14-36) 12/12/23 04:35
ALT 29 U/L (0-35) 12/12/23 04:35
Alkaline Phosphatase 145 U/L (38-126) H 12/12/23 04:35
Total Protein 5.3 g/dl (6.3-8.2) L 12/12/23 04:35
Albumin 3.1 g/dl (3.5-5.0) L 12/12/23 04:35
Physical Exam
-
General: NAD. Sleeping comfortably.
Abdominal: Mildly distended, nontender to palpation. Tympanitic to percussion in all quadrants. Stapled wounds are healing well, no surrounding erythema, fluctuance, or drainage.
Psych: Still confused this AM. Very tired as well.
[2023-12-16 08:45] VITALS: BP 134/90
[2023-12-16] MEDS: PROTONIX IV 40 MG IV (09:04)
[2023-12-16] MEDS: NSS (PRESERVATIVE FREE) 10 ML IV (09:04)
[2023-12-16] MEDS: MIRALAX PO (09:05)
[2023-12-16] MEDS: HEPARIN 5000 UNITS SC ×3 (09:05→23:18)
[2023-12-16] MEDS: FLUSH (NSS) 2 FLUSH IV (09:06)
[2023-12-16] MEDS: TYLENOL 650 MG PO (11:15)
--- NOTE | 2023-12-16 12:01 | CM ---
Addendum entered by Steph Alvarado 12/16/23 14:46:
Spoke with haley Soto supervisor photostat at [facility]
Can accept on weekends - call nsg supervisor photostat to facilitate transfer [phone], ext [phone]
Original Note:
Case management following for discharge planning
Called Risa at [facility] - voice studies director Herlinda not available
LM with nursing supervisor photostat requesting return call to discuss poss discharge plan [phone], ext [phone]
Awaiting return call
Plan - anticipate transfer to [facility] when medically stable
[2023-12-16 12:38] VITALS: BP 142/79; PULSE 96; O2SAT 97
[2023-12-16 15:02] VITALS: BP 146/79
[2023-12-16] MEDS: TOPROL XL 50 MG PO (15:04)
--- NOTE | 2023-12-16 15:31 | W.PN.HOSP.TC ---
Today's Communication/Plan
-
DC planning
Assessment / Plan
Assessment / Plan
Assessment/Plan
Patient is an 88y F with PMH significant for achalasia, hypertension and anxiety who presents to ED complaining of abdominal pain and bloating.
SBO with symptoms for ~2 week duration [employer] status post laparoscopic converted to laparotomy with lysis of adhesions and small-bowel resection on 12/09/23
- CT scan shows high grade SBO with transition point in the L pelvis.
- Tolerating LR diet
- Surgery cleared for DC
- OOB as tolerated
- PT/OT eval and treat -rec rehab
Confusional episode -suspect medication related - no agitation ; now much improved congnitively.
Hx Anxiety / Depression / Insomnia
Polypharmacy
- Patient is on multiple nocturnal hypnotics / sedating agents.
- Her mirtazepine and seroquel was restarted along with prn benzo. Hold Mirtazepine for now.
SANTIAGO- RESOLVED
Nephro following
Benign Hypertension
Resumed oral BB -increased the dose. Follow for now.
If high will add Amlodipine
GERD / Achalasia
- Stable. s/p POEM procedure about 2 years ago.
- No current / recent issues with swallow dysfunction, pain, etc.
- Continue PPI daily.
DVT Prophylaxis: SCDs -- Lovenox switched on 12/10/23 to Heparin given worsening renal function.
Code Status: DNR
DW son at bedside.
Medically stable for discharge to rehab. Discussed with case management today.
Anticipated Discharge: Within 24 hours
Subjective/Interval History
-
Date of Service: December 16, 2023
Patient is much better with the cognition. Sitting in a chair and oriented.
Son at bedside who is also seen improvement in her cognition.
Patient is tolerating diet without nausea vomiting. Denies any abdominal pain.
Objective Data
-
Labs:
Laboratory Results
12/16/23
04:40
Sodium 139
Potassium 4.2
Chloride 99
Carbon Dioxide 31 H
BUN 23 H
Creatinine 0.7
Glucose 93
Calcium 9.1
Vital Signs:
Vital Signs
Temp Pulse Resp BP Pulse Ox
97.7 F 96 16 134/90 96
12/16/23 07:05 12/16/23 08:45 12/16/23 08:45 12/16/23 08:45 12/16/23 08:30
I&O
12/15/23 12/16/23 12/17/23
06:59 06:59 06:59
Intake Total 960 / 960 900 / 900
Output Total 2 / 2 450 / 450
Balance 958 / 958 450 / 450
Review of Systems
-
Respiratory: Denies Trouble Breathing
Cardiac: Denies Chest Pain
Neuro: Denies Dizzy
Physical Exam
-
Respiratory: Clear to Auscultation and Non Labored Respirations; Negative Accessory Resp Muscle Use
Cardiac: Regular Rhythm and S1/S2
GI: Soft and Nontender
Neuro: Awake, Alert and Oriented
Psych: Calm
Data Reviewed
-
Labs: Labs Reviewed by me
--- NOTE | 2023-12-16 15:32 | W.PN.NEPH.PH ---
Today's Communication / Plan
-
observe
Assessment/Plan
-
Impression:
SANTIAGO
Status post lysis of adhesions and small bowel resection
History of hypertension
History of anxiety/depression
Plan:
SANTIAGO: prerenal, resolved creatinine at 0.7
Diet advanced to low residue
k normal now
monitor off IVF
BP are high back on po meds also anxiety could be playing a role, metoprolol dosage was doubled by primary for tachycardia and hypertension-titrate as needed
will s/o, call with ?s
-
-
Date of Service: December 16, 2023
CC / HPI / ROS
-
Chief Complaint:
Acute kidney injury
History of Present Illness:
Creatinine down and stable at 0.7
BP better this pm
k better at 4.2, phos 2.5 normal
Sodium at 139
Review of Systems:
tolerating po liquids
no n/v
no other complaints
Labs
-
Labs:
WBC 8.3 10^3/uL (4.8-10.8) 12/13/23 04:34
RBC 3.79 10^6/uL (4.20-5.40) L 12/13/23 04:34
Hgb 11.7 g/dL (12.0-16.0) L 12/13/23 04:34
Hct 35.0 % (37.0-47.0) L 12/13/23 04:34
Plt Count 217 10^3/uL (130-400) 12/13/23 04:34
Sodium 139 mmol/L (135-145) 12/16/23 04:40
Potassium 4.2 mmol/L (3.5-5.1) 12/16/23 04:40
Chloride 99 mmol/L (98-107) 12/16/23 04:40
Carbon Dioxide 31 mmol/L (22-30) H 12/16/23 04:40
BUN 23 mg/dl (7-17) H 12/16/23 04:40
Creatinine 0.7 mg/dL (0.6-1.0) 12/16/23 04:40
eGFR > 60.00 12/16/23 04:40
Glucose 93 mg/dl (70-99) 12/16/23 04:40
Calcium 9.1 mg/dl (8.4-10.2) 12/16/23 04:40
Phosphorus 2.5 mg/dl (2.5-4.5) 12/16/23 04:40
Albumin 3.1 g/dl (3.5-5.0) L 12/12/23 04:35
Physical Exam
-
Vital Signs:
Vital Signs
Temp Pulse Resp BP Pulse Ox
97.7 F 96 16 134/90 96
12/16/23 07:05 12/16/23 08:45 12/16/23 08:45 12/16/23 08:45 12/16/23 08:30
Cardiovascular:: Regular rate and rhythm
Respiratory:: Bilateral: CTA
Lung Excursion:: Normal
Abdomen:: Nontender and Soft
Extremity Edema:: None: Bilateral:
Kingsley Catheter: No
--- NOTE | 2023-12-16 18:38 | PTCARENOTE ---
pt's son, Irving Murphy gave his number for discharge on [place]=[phone].
pt's daughter, Cecilia is not available on Tuesday.
[2023-12-16] MEDS: SEROQUEL 25 MG PO (21:15)
[2023-12-16 23:00] VITALS: BP 143/72
[2023-12-17] MEDS: RESTASIS 0.05% OPHTHALMIC EMULSION 1 DROPS OPHTH ×2 (03:25→12:54)
[2023-12-17 06:59] VITALS: BP 171/88
[2023-12-17] MEDS: MIRALAX PO (08:50)
[2023-12-17] MEDS: NSS (PRESERVATIVE FREE) 10 ML IV (08:50)
[2023-12-17] MEDS: HEPARIN 5000 UNITS SC (08:51)
[2023-12-17] MEDS: PROTONIX IV 40 MG IV (08:51)
--- NOTE | 2023-12-17 11:19 | W.PN.HOSP.TC ---
Today's Communication/Plan
-
DC
Assessment / Plan
Assessment / Plan
Assessment/Plan
Patient is an 88y F with PMH significant for achalasia, hypertension and anxiety who presents to ED complaining of abdominal pain and bloating.
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
- CT scan shows high grade SBO with transition point in the L pelvis.
- Tolerating LR diet
- Surgery cleared for DC
- OOB as tolerated
- PT/OT eval and treat -rec rehab
Confusional episode -suspect medication related - no agitation ; now much improved congnitively.
Hx Anxiety / Depression / Insomnia
Polypharmacy
- Patient is on multiple nocturnal hypnotics / sedating agents.
- Her mirtazepine and seroquel was restarted along with prn benzo. Hold Mirtazepine for now and even on dc.
SANTIAGO- RESOLVED
Nephro following
Benign Hypertension
Resumed oral BB -increased the dose. Follow for now. Improvements noted.
GERD / Achalasia
- Stable. s/p POEM procedure about 2 years ago.
- No current / recent issues with swallow dysfunction, pain, etc.
- Continue PPI daily.
DVT Prophylaxis: SCDs -- Lovenox switched on 12/10/23 to Heparin given worsening renal function.
Code Status: DNR
DW son at bedside.
Medically stable for discharge to rehab. Discussed with case management today -she will check with facility.
Anticipated Discharge: Today
Subjective/Interval History
-
Date of Service: December 17, 2023
Sitting in chair having her breakfast. Alert and oriented. Voices no specific complaints. She would like to get a shower if possible.
Objective Data
-
Vital Signs:
Vital Signs
Temp Pulse Resp BP Pulse Ox
97.7 F 94 14 171/88 97
12/17/23 06:59 12/17/23 06:59 12/17/23 06:59 12/17/23 06:59 12/17/23 06:59
I&O
12/16/23 12/17/23 12/18/23
06:59 06:59 06:59
Intake Total 900 / 900 1560 / 1560
Output Total 450 / 450
Balance 450 / 450 1560 / 1560
Review of Systems
-
Constitutional: Denies Fever
Respiratory: Denies Trouble Breathing
Cardiac: Denies Chest Pain
Abdomen/GI: Denies Abdominal Pain, Nausea or Vomiting
Neuro: Denies Dizzy
Physical Exam
-
General: No Apparent Distress
Respiratory: Non Labored Respirations; Negative Accessory Resp Muscle Use
Cardiac: Regular Rhythm and S1/S2; Negative Tachycardic
GI: Soft and Nontender
Neuro: AO x 3
Psych: Calm
--- NOTE | 2023-12-17 11:19 | CM ---
Addendum entered by Steph Alvarado 12/17/23 12:41:
Transport at 3:30PM
notified Alexis at [facility]
Daughter Kelsey notified of transport time
Addendum entered by Steph Alvarado 12/17/23 12:06:
Received call from Alexis from [facility] - can accept today
Dr Spencer made aware
Plan - transfer to [facility]
R - [phone]
F - [phone]
Original Note:
Pt medically ready for discharge
Called [facility] - on VM for nsg spring assembler supervisor - pt for discharge
Plan - transfer to [facility] when bed confirmed
[2023-12-17] MEDS: TOPROL XL 50 MG PO (12:54)
[2023-12-17 15:01] VITALS: BP 159/91
--- NOTE | 2023-12-18 17:06 | W.DCSUMMARY ---
Discharge Summary
Discharge Data
Date of Admission: 12/08/23
Date of Discharge: 12/17/23
-
Pending Results: No
Hospital Course
Primary diagnosis:
Small bowel obstruction status post laparotomy and lysis of additions and small bowel resection 12/09/2023
Postop confusional episode suspect medication related
Acute kidney injury
Secondary diagnosis:
Anxiety/depression
Benign hypertension
Achalasia status post surgical repair
Hospital course:
88-year-old had presented with complaints of abdominal pain and bloating. She had symptoms for 2 weeks duration. She was noted to be in small bowel obstruction. Had a laparoscopic which was converted to laparotomy and he had lysis of additions
and small bowel resection on 12/09/2023. She had normal recovery course from bowel function. She was tolerating a solid diet before discharge.
Postoperatively she had confusional episodes with agitation suspected secondary medication which all resolved. She was on Seroquel at home which was continued but mirtazapine was discontinued as it was causing sedation. She was not requiring much
of as needed Klonopin which is normally at home. She had a brief acute kidney injury which resolved as well.
Once medically stable she was discharged to rehab.
Consultants on board:
General surgery-Ash Dumont
Discharge Plan
-
Patient Disposition: Detention/SNF
Discharge Diagnosis/Procedures: Small bowel obstruction. Exploratory laparotomy, lysis of adhesions, small bowel resection
Condition: Fair
Diet: Low Fiber
Additional Diets: Generally recommend lower fiber foods and smaller portions initially after surgery for a few weeks.
Activity: No strenuous activity
Additional Activity: No lifting over 15 to 20 pounds. Walking, standing, stairs and routine daily light activities are all okay as tolerated.
Driving Restrictions: No driving
Bathing Restrictions: OK to Shower
Other Services: PT and OT
Wound Care: Leave incision open to air. [place] will be removed at postoperative follow-up 2 to 3 weeks after surgery.
Referrals:
Raquel Gonzalez CRNP [Specified Professional Personl] - 12/22/23 1:40 pm
Antonio Angel MD [Family Provider] -
Ash Pena MD [Active] - in one week
Prescriptions:
New
metoprolol succinate 50 mg Tablet Extended Release 24 Hr
50 mg PO DAILY@1300 Qty: 1 0RF
Rx Instructions:
dose increased on this admission
Continued
multivitamin Tablet
1 tab PO HS
quetiapine 25 mg Tablet
25 mg PO HS
acetaminophen 325 mg Tablet
650 mg PO BID
Patient Comments:
for 14 days, Discontinue on 12/20/23
simethicone [Gas-X Ultra-Strength] 180 mg Capsule
180 mg PO TID PRN (Reason: distension)
meloxicam 15 mg Tablet
15 mg PO DAILY
clonazepam 0.5 mg Tablet
0.25 mg PO Q4H PRN (Reason: anxiety)
meclizine 12.5 mg Tablet
12.5 mg PO BID PRN (Reason: DIZZINESS)
Patient Comments:
stop 12/20/23
omeprazole 40 mg Capsule,Delayed Release(Dr/Ec)
40 mg PO DAILY
docusate sodium [Colace] 100 mg Capsule
200 mg PO BID
sorbitol 70 % Solution
30 ml PO .Q48H PRN (Reason: constipation)
cholecalciferol (vitamin D3) [Vitamin D3] 10 mcg (400 unit) Capsule
10 mcg PO HS
magnesium hydroxide [Milk Of Magnesia Concentrated] 2,400 mg/10 mL Suspension
30 ml PO DAILY PRN (Reason: constipation)
cyclosporine 0.05 % Drops
1 drp OPHTHALMIC (EYE) Q12H
Patient Comments:
BOTH EYES
tramadol 50 mg Tablet
50 mg PO Q6H PRN (Reason: pain) Qty: 12 0RF
Changed
acetaminophen 325 mg Tablet
650 mg PO Q6H PRN (Reason: pain or temp > 100) Qty: 0 0RF
Discontinued
clonazepam 0.5 mg Tablet
0.75 mg PO HS
mirtazapine 30 mg Tablet
30 mg PO HS
metoprolol succinate [Toprol XL] 25 mg Tablet Extended Release 24 Hr
25 mg PO .1PM
Discharge Orders:
Discharge Patient (As Directed); Ordered 12/17/23
Ordered By: Sharan Spencer
Discharge Date and Time
Discharge Date/Time: 12/17/23 16:52
Print Language: SYRIAC
== END 2023-12-17 16:52 | DRG 330 ==
LOC: 2 SOUTH 05:29
PROVIDERS: Hospitalist; ADMITTING PHYSICIAN Hospitalist; ATTENDING PHYSICIAN Internal Medicine; CONSULT PHYSICIAN Internal Medicine Cardiovascular Disease; CONSULT PHYSICIAN Specialist; CONSULT PHYSICIAN Surgery; EMERGENCY PHYSICIAN Emergency Medicine; FAMILY PHYSICIAN Internal Medicine
PROC: 0DT80ZZ Resection of Small Intestine, Open Approach (ICD-10-PCS; 2023-12-09)
PROC: 0DNU0ZZ Release Omentum, Open Approach (ICD-10-PCS; 2023-12-09)
DX: K56.52 Intestinal adhesions [bands] with complete obstruction (principal); F05 Delirium due to known physiological condition; N17.9 Acute kidney failure, unspecified; R64 Cachexia; Z68.1 Body mass index [BMI] 19.9 or less, adult; I10 Essential (primary) hypertension; F32.A Depression, unspecified; F41.9 Anxiety disorder, unspecified; Z53.31 Laparoscopic surgical procedure converted to open procedure
CPT/HCPCS: 88307; 74018; 74177; 74250; 80048; 80053; 81003; 82570; 82962; 83605; 83690; 83735; 84100; 84300; 85025; 85027; 87070; 93005; 96361; 96374; 96375; 97116; 97163; 97164; 97166; 97168; 97530; 97535; 99285; C1776; J1335; Q9967

== ENCOUNTER → 2024-04-25 13:01 | Outpatient (REF) | payer MEDICARE, OTHER, SELFPAY | LOC: HWRCS 13:01 | PROVIDERS: ATTENDING PHYSICIAN Internal Medicine Cardiovascular Disease; FAMILY PHYSICIAN Internal Medicine | DX: I35.1 Nonrheumatic aortic (valve) insufficiency (principal) | CPT/HCPCS: 93306 ==

== ENCOUNTER 2024-06-01 04:23 | Emergency (ER) | payer MEDICARE, OTHER, SELFPAY ==
[2024-06-01 04:30] VITALS: BP 160/98
[2024-06-01 04:33] VITALS: BP 160/98
--- NOTE | 2024-06-01 04:48 | ED.MUSCINJ ---
HPI-Injury
General
Chief Complaint: Fall
Source: patient
Exam Limitations: none
Time Seen by Provider: 06/01/24 04:30
Nursing documentation reviewed up to this point in time: agreed with
History of Present Illness-Injury
Initial Injury comments:
This a pleasant 88-year-old female from [facility], [facility] where she lives independently. She was getting up to go to the bathroom and she tripped landing on her right knee. She states that she bent all of her toes back. She
did hit her head but denies loss of consciousness. She is not on any blood thinners. She suffered an abrasion just above her left eye. She has abrasions to her left and right elbows. She does state that she has full range of motion in the
elbows. Her biggest complaint is her right knee.
Past History
Past History
ED Past Medical History: Valvular disease
ED Past Surgical History: Gynecological
Social History
Living: alone
Review of Systems
Review of Systems
Allergies reviewed?: Yes
All Other Systems: ROS reviewed and negative except as documented in HPI and ROS
Constitutional: Reports no symptoms
EENT: Reports no symptoms
Respiratory: Reports no symptoms
Cardiac: Reports no symptoms
ABD/GI: Reports no symptoms
: Reports no symptoms
Musculoskeletal: Reports joint pain
Skin: Reports no symptoms
Neurological: Reports no symptoms
Endocrine: Reports no symptoms
Hematologic/Lymphatic: Reports no symptoms
Psychiatric: Reports anxiety
Phy Exam
General Physical Exam
General Presentation: well appearing and mild distress
General age: appears stated age
General Skin: warm and dry
General Habitus: elderly
General Mental: anxious and usual mental status
General Hydration: appears well hydrated
ENT Exam
ENT Exam: EOMI and neck supple
Cardiovascular Exam
Cardiovascular Exam: regular rate/rhythm
Pulmonary Exam
Pulmonary Exam: lungs clear and no respiratory distress
Neurological Exam
Neurological Exam: alert and oriented x3
Musculoskeletal Exam
Musculoskeletal Exam: full ROM and neck pain
Skin Exam
Skin Exam: normal color and warm/dry
Psychiatric Exam
Psychiatric Exam: normal mood/affect and anxious
Injury Course
Orders/Labs/Results
Orders:
Orders
06/01/24 04:47
CT Head W/o Iv Contrast Urgent
Comment:
Reason For Exam: fall, abrasion
Foot, Left 3 View [CR Foot - Left Min 3 Views] Urgent
Comment:
Reason For Exam: fall
Foot, Right 3 View [CR Foot - Right Min 3 Views] Urgent
Comment:
Reason For Exam: fall
Knee, Right 4 or More Views [CR Knee- Right 4 Or More View*] Urgent
Comment:
Reason For Exam: fall, medial knee pain
*Critical Care Note
Total Time (30-74mins, 75-104mins- exclusive of procedures): Not Applicable
Update Note
Update Note:
CT head without IV contrast
IMPRESSION:
No hemorrhage or other acute intracranial abnormality. Sequelae of chronic microvascular disease. Chronic left maxillary sinusitis.
Finalized at 5:20 AM EST
ED Attending Note
-
Portions of this chart may have been created with voice recognition software.� Occasional wrong word or��sound alike� substitutions may have occurred due to the inherent limitations of voice recognition software.
Discharge Plan
Departure
Prescriptions:
No Action
multivitamin Tablet
1 tab PO HS
quetiapine 25 mg Tablet
25 mg PO HS
acetaminophen 325 mg Tablet
650 mg PO BID
Patient Comments:
for 14 days, Discontinue on 12/20/23
simethicone [Gas-X Ultra-Strength] 180 mg Capsule
180 mg PO TID PRN (Reason: distension)
meloxicam 15 mg Tablet
15 mg PO DAILY
clonazepam 0.5 mg Tablet
0.25 mg PO Q4H PRN (Reason: anxiety)
meclizine 12.5 mg Tablet
12.5 mg PO BID PRN (Reason: DIZZINESS)
Patient Comments:
stop 12/20/23
omeprazole 40 mg Capsule,Delayed Release(Dr/Ec)
40 mg PO DAILY
docusate sodium [Colace] 100 mg Capsule
200 mg PO BID
sorbitol 70 % Solution
30 ml PO .Q48H PRN (Reason: constipation)
cholecalciferol (vitamin D3) [Vitamin D3] 10 mcg (400 unit) Capsule
10 mcg PO HS
magnesium hydroxide [Milk Of Magnesia Concentrated] 2,400 mg/10 mL Suspension
30 ml PO DAILY PRN (Reason: constipation)
cyclosporine 0.05 % Drops
1 drp OPHTHALMIC (EYE) Q12H
Patient Comments:
BOTH EYES
metoprolol succinate 50 mg Tablet Extended Release 24 Hr
50 mg PO DAILY@1300 Qty: 1 0RF
Rx Instructions:
dose increased on this admission
acetaminophen 325 mg Tablet
650 mg PO Q6H PRN (Reason: pain or temp > 100) Qty: 0 0RF
tramadol 50 mg Tablet
50 mg PO Q6H PRN (Reason: pain) Qty: 12 0RF
Referrals:
UNKNOWN - PT DOES,NOT KNOW [Family Provider] -
Interventions
Interventions:
*Risk Screen - Suicide Last Done: 06/01/24 04:30
*General Assessment Last Done: 06/01/24 04:30
*Neglect/Abuse Screening Last Done: 06/01/24 04:30
*ED- Fall Risk Assessment Last Done: 06/01/24 04:30
*ED COVID-19 Vaccine History Last Done: 06/01/24 04:30
ED-Musculoskeletal Assessment Last Done: 06/01/24 04:45
ED- Neurological Assessment Last Done: 06/01/24 04:45
ED-Skin Assessment Last Done: 06/01/24 04:45
Discharge Date and Time
Print Language: SPANISH
[2024-06-01 05:00] VITALS: BP 166/94
[2024-06-01 05:34] VITALS: BP 167/79
[2024-06-01 06:00] VITALS: BP 169/83
[2024-06-01] MEDS: TYLENOL 1000 MG PO (07:37)
== END 2024-06-01 08:05 | disposition home or self-care (01) ==
LOC: EMR 04:23
PROVIDERS: EMERGENCY PHYSICIAN Student in an Organized Health Care Education/Training Program
DX: S00.212A Abrasion of left eyelid and periocular area, initial encounter (principal); S50.312A Abrasion of left elbow, initial encounter; M25.561 Pain in right knee; S50.311A Abrasion of right elbow, initial encounter; W01.0XXA Fall on same level from slipping, tripping and stumbling without subsequent striking against object, initial encounter; J32.0 Chronic maxillary sinusitis
CPT/HCPCS: 99284; 70450; 73564; 73630